=== PATIENT | female | born 1965 | race African-American/Black ===

== ENCOUNTER 2017-03-30 20:02 | Inpatient (IN) | payer MEDICARE, MEDICAID ==
[2017-03-30] MEDS ORDERED: MORPHINE SULFATE 10 MG/ML INJ IV ONE (20:21)
[2017-03-30] MEDS ORDERED: ONDANSETRON HCL INJ/PF 4 MG/2 ML SDV IV ONE ×2 (20:21→23:16)
--- NOTE | 2017-03-30 20:22 | ER Document Report ---
ED Medical Screen (RME) - General Chief Complaint: Abdominal Pain Stated Complaint: ABDOMINAL PAIN Time Seen by Provider: 03/30/17 20:12 Mode of Arrival: Wheelchair Information source: Patient TRAVEL OUTSIDE OF THE [place] IN LAST 30 DAYS: No - HPI Patient complains to provider of: Abdominal pain, nausea and vomiting Onset: Yesterday Notes: 03/30/17 20:22 Patient is a 51-year-old female presenting to the emergency room today complaining of abdominal pain with nausea and vomiting that started yesterday evening, she is a diabetic but has not checked her blood sugar today - Related Data Allergies/Adverse Reactions: No Known Allergies Allergy (Verified 03/30/17 20:09) Past Medical History - Past Medical History Cardiac Medical History: Reports: Hx Hypertension Pulmonary Medical History: Reports: Hx COPD Renal/ Medical History: Denies: Hx Peritoneal Dialysis Musculoskeltal Medical History: Reports Hx Arthritis Past Surgical History: Reports: Hx Hysterectomy, Hx Orthopedic Surgery - knee - Immunizations Hx Diphtheria, Pertussis, Tetanus Vaccination: Yes Physical Exam - Vital signs Vitals: Temp Pulse Resp BP Pulse Ox 98.5 F 97 18 145/92 H 98 03/30/17 20:08 03/30/17 20:08 03/30/17 20:08 03/30/17 20:08 03/30/17 20:08 Course - Vital Signs Vital signs: Temp Pulse Resp BP Pulse Ox 98.5 F 97 18 145/92 H 98 03/30/17 20:08 03/30/17 20:08 03/30/17 20:08 03/30/17 20:08 03/30/17 20:08
[2017-03-30] MEDS: NORMAL SALINE 1000 ML 1,000 ML IV PRN ×2 (20:45→22:52)
[2017-03-30 20:54] LABS: ABSOLUTE BASOPHILS # (AUTO) 0.1 10^3/uL (0.0-0.2); ABSOLUTE LYMPHOCYTES (AUTO) 1.2 10^3/uL (0.5-4.7); ABSOLUTE MONOCYTES (AUTO) 0.6 10^3/uL (0.1-1.4); ABSOLUTE NEUT (AUTO) 10.9 10^3/uL (1.7-8.2); BASOPHILS % (AUTO) 0.5 % (0-2); LYMPHOCYTES % (AUTO) 9.5 % (13-45); MEAN CORPUSCULAR HEMOGLOBIN 29.8 pg (27.0-33.4); MEAN CORPUSCULAR HGB CONC 34.1 g/dL (32.0-36.0); MEAN CORPUSCULAR VOLUME 87 fl (80-97); MONOCYTES % (AUTO) 4.8 % (3-13); RED CELL DISTRIBUTION WIDTH 14.2 % (11.5-14.0); SEGMENTED NEUTROPHILS % (AUTO) 85.2 % (42-78); WHITE BLOOD COUNT 12.8 10^3/uL (4.0-10.5)
[2017-03-30 21:07] LABS: ALANINE AMINOTRANSFERASE 14 U/L (9-52); ALBUMIN 4.8 g/dL (3.5-5.0); ALKALINE PHOSPHATASE 78 U/L (38-126); ANION GAP 14 (5-19); ASPARTATE AMINO TRANSFERASE 18 U/L (14-36); BILIRUBIN,DIRECT 0.5 mg/dL (0.0-0.4); BILIRUBIN,TOTAL 1.2 mg/dL (0.2-1.3); BLOOD UREA NITROGEN 11 mg/dL (7-20); CALCIUM 10.7 mg/dL (8.4-10.2); CARBON DIOXIDE 35 mmol/L (22-30); CHLORIDE 95 mmol/L (98-107); CREATININE RESULT 0.56 mg/dL (0.52-1.25); GLUCOSE 180 mg/dL (75-110); LIPASE 69.6 U/L (23-300); POTASSIUM 3.3 mmol/L (3.6-5.0); TOTAL PROTEIN 8.4 g/dL (6.3-8.2)
[2017-03-30 21:35] LABS: VENOUS BLOOD BASE EXCESS 10.3 mmol/L; VENOUS BLOOD HCO3 35.6 mmol/L (20-32); VENOUS BLOOD PCO2 49.4 mmHg (35-63); VENOUS BLOOD PH 7.48 (7.30-7.42)
[2017-03-30 23:15] LABS: APPEARANCE,URINE SLIGHTLY-CLOUDY; BILIRUBIN,URINE NEGATIVE (NEGATIVE); GLUCOSE, URINE NEGATIVE (NEGATIVE); KETONES,URINE 20 mg/dL (NEGATIVE); LEUKOCYTE ESTERASE,URINE TRACE (NEGATIVE); NITRITE,URINE NEGATIVE (NEGATIVE); PROTEIN,URINE NEGATIVE (NEGATIVE); URINE SPECIFIC GRAVITY 1.017
[2017-03-30] MEDS ORDERED: HYDROMORPHONE HCL INJ/PF 2 MG/ML AMPULE IV ONE (23:16)
--- NOTE | 2017-03-30 23:17 | ER Document Report ---
ED GI/ - General Mode of Arrival: Wheelchair Information source: Patient, Relative TRAVEL OUTSIDE OF THE [place] IN LAST 30 DAYS: No - HPI Patient complains to provider of: Abdominal pain, Vomiting Onset: Yesterday Location: Other - bridget-umbilical Associated symptoms: Other - see notes above <DARON STEEN - Last Filed: 03/30/17 23:45> <RUSTAM SEGAL - Last Filed: 03/31/17 04:17> - General Chief Complaint: Abdominal Pain Stated Complaint: ABDOMINAL PAIN Time Seen by Provider: 03/30/17 20:12 Notes: 51 year old female with history of diabetes and hypertension presents to the ED complaining of sharp stabbing bridget-umbilical abdominal pain that started yesterday evening. Patient's family states that the patient had a decreased appetite yesterday, but managed to eat a few peanuts at 1400 yesterday. Patient began to feel dizzy and developed the abdominal pain. The family then gave her some chicken noodle soup of which she sipped on the chicken broth. Patient explains that the chicken broth did not exacerbate the pain. Patient states that she has not been passing gas. Patient is additionally complaining of nausea and vomiting (no blood). Patient has taken Pepto Bismol, Milk of Magnesium, laxatives, and an enema to no relief. Patient denies history of a appendectomy or cholecystectomy. (DARON STEEN) - Related Data Allergies/Adverse Reactions: No Known Allergies Allergy (Verified 03/30/17 20:09) Past Medical History - General Information source: Patient, Relative - Social History Smoking Status: Never Smoker Chew tobacco use (# tins/day): No Frequency of alcohol use: None Drug Abuse: None Family History: Reviewed & Not Pertinent - Past Medical History Cardiac Medical History: Reports: Hx Hypertension Pulmonary Medical History: Reports: Hx COPD Endocrine Medical History: Reports: Hx Diabetes Mellitus Type 2 - non-insulin dependent Renal/ Medical History: Denies: Hx Peritoneal Dialysis Musculoskeltal Medical History: Reports Hx Arthritis Past Surgical History: Reports: Hx Hysterectomy, Hx Orthopedic Surgery - knee - Immunizations Hx Diphtheria, Pertussis, Tetanus Vaccination: Yes <DARON STEEN - Last Filed: 03/30/17 23:45> Review of Systems - Review of Systems Constitutional: No symptoms reported EENT: No symptoms reported Cardiovascular: See HPI, Dizziness Respiratory: No symptoms reported Gastrointestinal: See HPI, Abdominal pain, Nausea, Vomiting, Poor appetite Genitourinary: No symptoms reported Female Genitourinary: No symptoms reported Musculoskeletal: No symptoms reported Skin: No symptoms reported Hematologic/Lymphatic: No symptoms reported Neurological/Psychological: No symptoms reported <DARON STEEN - Last Filed: 03/30/17 23:45> Physical Exam <DARON STEEN - Last Filed: 03/30/17 23:45> <RUSTAM SEGAL - Last Filed: 03/31/17 04:17> - Vital signs Vitals: Temp Pulse Resp BP Pulse Ox 98.5 F 97 18 145/92 H 98 03/30/17 20:08 03/30/17 20:08 03/30/17 20:08 03/30/17 20:08 03/30/17 20:08 - Notes Notes: GENERAL: Alert, interacts well. No acute distress. HEAD: Normocephalic, atraumatic. EYES: Pupils equal, round, and reactive to light. Extraocular movements intact. ENT: Oral mucosa moist, tongue midline. NECK: Full range of motion. Supple. Trachea midline. LUNGS: Clear to auscultation bilaterally, no wheezes, rales, or rhonchi. No respiratory distress. HEART: Regular rate and rhythm. No murmurs, gallops, or rubs. ABDOMEN: Soft. Non-distended. Bowel sounds present in all 4 quadrants. Tenderness to palpation of the bridget-umbilical region. EXTREMITIES: Moves all 4 extremities spontaneously. No cyanosis. NEUROLOGICAL: Alert and oriented x3. Normal speech. PSYCH: Normal affect, normal mood. SKIN: Warm, dry, normal turgor. No rashes or lesions noted. (DARON STEEN) Course - Laboratory Result Diagrams: 03/30/17 20:35 03/30/17 20:35 <DARON STEEN - Last Filed: 03/30/17 23:45> - Laboratory Result Diagrams: 03/30/17 20:35 03/30/17 20:35 <RUSTAM SEGAL - Last Filed: 03/31/17 04:17> - Re-evaluation Re-evalutation: 03/31/17 02:39 CBC shows slight leukocytosis of 12.8, venous blood gas shows pH of 7.48 which is grossly unremarkable, CMP shows slightly low potassium at 3.3, elevated glucose at 180 otherwise unremarkable, lipase normal at 69.6, urinalysis has trace leukocyte esterase and 4 screws epithelial cells suspect contamination, CT scan of the abdomen pelvis was ordered due to the obstipation, vomiting and tenderness to palpation, shows a partial small bowel obstruction with transition point in the pelvis. NG tube was ordered with lidocaine neb to increase patient comfort. Discussed with the surgeon on-call who agrees to admit the patient to his service on the surgical floor. (RUSTAM SEGAL) - Vital Signs Vital signs: Temp Pulse Resp BP Pulse Ox 98.5 F 97 18 145/92 H 98 03/30/17 20:08 03/30/17 20:08 03/30/17 20:08 03/30/17 20:08 03/30/17 20:08 - Laboratory Laboratory results interpreted by me: 03/30/17 03/30/17 03/30/17 20:27 20:35 20:35 WBC 12.8 H RDW 14.2 H Seg Neutrophils % 85.2 H Lymphocytes % 9.5 L Absolute Neutrophils 10.9 H VBG pH VBG HCO3 Potassium 3.3 L Chloride 95 L Carbon Dioxide 35 H Glucose 180 H POC Glucose 177 H Calcium 10.7 H Direct Bilirubin 0.5 H Total Protein 8.4 H Urine Ketones Urine Urobilinogen Ur Leukocyte Esterase 03/30/17 03/30/17 20:35 22:49 WBC RDW Seg Neutrophils % Lymphocytes % Absolute Neutrophils VBG pH 7.48 H VBG HCO3 35.6 H Potassium Chloride Carbon Dioxide Glucose POC Glucose Calcium Direct Bilirubin Total Protein Urine Ketones 20 H Urine Urobilinogen 2.0 H Ur Leukocyte Esterase TRACE H Discharge <DARON STEEN - Last Filed: 03/30/17 23:45> - Discharge Admitting Provider: Surgicalist - [facility] Admitted: Surgical Floor <RUSTAM SEGAL - Last Filed: 03/31/17 04:17> - Discharge Clinical Impression: Partial small bowel obstruction Condition: Good Disposition: ADMITTED INPATIENT Scribe Attestation: 03/31/17 04:17 I personally performed the services described in the documentation, reviewed and edited the documentation which was dictated to the scribe in my presence, and it accurately records my words and actions. (RUSTAM SEGAL) Scribe Documentation - Scribe Written by Scribe:: Marisol Smith, 03/30/2017 [id number] acting as scribe for :: Patricia <DARON STEEN - Last Filed: 03/30/17 23:45>
[2017-03-31] MEDS ORDERED: HYDROMORPHONE HCL INJ/PF 2 MG/ML AMPULE IV ONE (01:15)
--- NOTE | 2017-03-31 02:16 | RADIOLOGY REPORT (SQ) ---
EXAM DESCRIPTION: CT ABD/PELVIS WITH IV ORAL COMPLETED DATE/TIME: 03/31/2017 1:59 am REASON FOR STUDY: periumblical pain to palpation COMPARISON: None. TECHNIQUE: CT scan of the abdomen and pelvis performed using helical scanning technique with dynamic intravenous contrast injection. With oral contrast. Images reviewed with lung, soft tissue, and bon e windows. Reconstructed coronal and sagittal MPR images reviewed. Delayed images for evaluation of t he urinary system also acquired. All images stored on PACS. All CT scanners at this facility use dose modulation, iterative reconstruction, and/or weight based d osing when appropriate to reduce radiation dose to as low as reasonably achievable (ALARA). [facility]: Dose Right [facility]: CareDose [facility]: Dose Right [facility]: Teradose 4D [facility]: [place] CONTRAST TYPE AND DOSE: contrast/concentration: Isovue 370.00 mg/ml; Total Contrast Delivered: 100.0 ml; Total Saline Delivered: 70.1 ml RENAL FUNCTION: GFR > 60. RADIATION DOSE: Up-to-date CT equipment and radiation dose reduction techniques were employed. CTDIv ol: 17.4 - 20.4 mGy. DLP: 2152 mGy-cm.. LIMITATIONS: None. FINDINGS: LOWER CHEST: No significant findings. No nodules or infiltrates. LIVER: Normal size. No masses. No dilated ducts. SPLEEN: Normal size. No focal lesions. PANCREAS: No masses. No significant calcifications. No adjacent inflammation or peripancreatic fluid collections. Pancreatic duct not dilated. GALLBLADDER: No identified stones by CT criteria. No inflammatory changes to suggest cholecystitis. ADRENAL GLANDS: No significant masses or asymmetry. RIGHT KIDNEY AND URETER: No solid masses. No significant calcifications. No hydronephrosis or hyd roureter. LEFT KIDNEY AND URETER: No solid masses. No significant calcifications. No hydronephrosis or hydr oureter. AORTA AND VESSELS: No aneurysm. No dissection. Renal arteries, SMA, celiac without stenosis. RETROPERITONEUM: No retroperitoneal adenopathy, hemorrhage or masses. BOWEL AND PERITONEAL CAVITY: Dilatation of proximal small bowel loops with a transition zone in the p otilio. Collapse of the colon. There is some mild pericolonic fat stranding of the distal descending colon just adjacent to dilated small bowel loops. APPENDIX: Not visualized. PELVIS: No mass. No free fluid. Normal bladder. ABDOMINAL WALL: No masses. No hernias. BONES: No significant or acute findings. OTHER: No other significant finding. IMPRESSION: Partial small bowel obstruction. Transition zone is in the pelvis without identified et iology. Minimal pericolonic fat stranding distal descending colon adjacent to dilated small bowel loops. No obvious diverticular other etiology for the fat stranding. TECHNICAL DOCUMENTATION: JOB ID: [id number] Quality ID # [id number]: Final reports with documentation of one or more dose reduction techniques (e.g., Au tomated exposure control, adjustment of the mA and/or kV according to patient size, use of iterative reconstruction technique) 2010 [employer]- All Rights Reserved
[2017-03-31] MEDS ORDERED: LIDOCAINE 2% INJ-PF (20 MG/ML) 10 ML AMPUL NEB ONE (02:34)
[2017-03-31] MEDS ORDERED: ONDANSETRON HCL INJ/PF 4 MG/2 ML SDV IV PRN (03:02)
--- NOTE | 2017-03-31 04:37 | RADIOLOGY REPORT (SQ) ---
EXAM DESCRIPTION: NASO/OROGASTRIC TUBE PLACEMENT COMPLETED DATE/TIME: 03/31/2017 4:30 am REASON FOR STUDY: ng tube placement COMPARISON: None. TECHNIQUE: AP view of the chest and abdomen LIMITATIONS: None. FINDINGS: Nasogastric tube tip in the body of the stomach. IMPRESSION: Nasogastric tube tip in the body of the stomach. TECHNICAL DOCUMENTATION: JOB ID: [id number] [employer]- All Rights Reserved
--- NOTE | 2017-03-31 07:03 | HISTORY AND PHYSICAL E ---
History and Physical NAME: GRANT CAGE : 1965 AGE: 51Y ADMITTED: 03/31/2017 ROOM: ED21 HISTORY OF PRESENT ILLNESS: A 51-year-old female patient presented to the emergency room with a history of abdominal pain for 2 days and nausea. She vomited a couple of times yesterday. Came to the emergency at night with abdominal pain and nausea. After arriving in the emergency room, she had a large bowel movement after NG tube insertion. She has history of partial small bowel obstruction a few years ago, after hysterectomy in the past. Symptoms started 2 days ago and as of now, she is feeling better after NG tube. PAST MEDICAL PROBLEMS: 1. History of overweight. 2. Hypertension. 3. History of tonsillectomy several years ago. 4. History of small bowel obstruction that resolved spontaneously. REVIEW OF SYSTEMS: As per examination. PHYSICAL EXAMINATION: GENERAL: She is a pleasant 51-year-old female patient, not in any distress. VITAL SIGNS: Currently afebrile, heart rate 90, blood pressure 140/72. HEAD AND NECK EXAMINATION: No lymphadenopathy, no masses. RESPIRATORY: On examination, both lungs are clear to auscultation. CARDIOVASCULAR: On examination, heart sounds are regular, no murmurs or gallops. ABDOMEN: On examination, soft diffusely. No tenderness on palpation. No palpable hernia. She does have bowel sounds, slightly hyperactive. EXTREMITIES: Warm and well perfused. LABORATORY: White count was 12.8, hemoglobin 14. BUN 11, creatinine 0.56. Serum LFTs were normal. Abdominal CT scan revealed partial bowel obstruction. IMPRESSION: Small bowel obstruction, most likely due to *------*. PLAN: Patient already had large bowel movement and output is minimal at this point. Looks like she will probably progress and resolve spontaneous. In any case, findings are admission for inpatient management with NG tube, bowel rest, IV hydration, DVT prophylaxis. Discussed with the patient the overall plan and management. DICTATING PHYSICIAN: SANTIAGO HOUSE M.D. [id number] PHY#: [id number] ID: [id number] JOB#: [id number] ACCT: [id number] cc: >
[2017-03-31] MEDS: POTASSI CL 20 MEQ/D5-1/2NS 1L 1000 ML IV PRN ×2 (08:13→17:39)
[2017-03-31] MEDS: HYDROMORPHONE HCL INJ/PF 2 MG/ML AMPULE IV PRN ×2 (08:29→23:14)
[2017-03-31] MEDS: ENOXAPARIN SODIUM INJ 40 MG/0.4 ML DISP.SYRIN SUBCUT SCH (11:19)
[2017-03-31] MEDS: LORATADINE 10 MG TABLET PO PRN (21:53)
[2017-04-01] MEDS: POTASSI CL 20 MEQ/D5-1/2NS 1L 1000 ML IV PRN ×3 (02:30→22:37)
[2017-04-01] MEDS: HYDROMORPHONE HCL INJ/PF 2 MG/ML AMPULE IV PRN (02:43)
--- NOTE | 2017-04-01 08:11 | RADIOLOGY REPORT (SQ) ---
EXAM DESCRIPTION: ABDOMEN 2 VIEWS COMPLETED DATE/TIME: 04/01/2017 7:53 am REASON FOR STUDY: INTERVAL CHANGE IN Psbo COMPARISON: CT abdomen pelvis 03/31/2017 NUMBER OF VIEWS: Two views. TECHNIQUE: Supine and upright radiographic images of the abdomen acquired. LIMITATIONS: None. FINDINGS: FREE AIR: None. No abnormal gas collections. LUNG BASES: Minimal left basilar atelectasis BOWEL GAS PATTERN: There is gas throughout the colon, air in few nondistended small bowel loops. Sma ll amount of air in the stomach fundus. A nasogastric tube is present with the tip and side port in the stomach. CALCIFICATIONS: No suspicious calcifications. SOFT TISSUES: No gross mass or suggestion of organomegaly. HARDWARE: None in the abdomen. BONES: No acute fracture. No worrisome bone lesions. OTHER: No other significant finding. IMPRESSION: Air bubbles throughout a nondistended gastrointestinal tract. Nasogastric tube tip and side port in the stomach TECHNICAL DOCUMENTATION: JOB ID: [id number] [employer]- All Rights Reserved
--- NOTE | 2017-04-01 10:57 | PROGRESS NOTE E ---
Progress Note NAME: GRANT CAGE : 1965 AGE: 51Y DATE: 04/01/2017 ROOM: 208 SUBJECTIVE: Patient denies any abdominal pains at this time. She has also passed flatus. Her NG tube has not drained a lot. IMPRESSION: 1. Resolution of PARTIAL SMALL-BOWEL OBSTRUCTION, LIKELY DUE TO ADHESIONS. 2. Discontinue NG tube. 3. Start clear liquids today and progress as tolerated. DICTATING PHYSICIAN: VEE BURKS M.D. [id number] PHY#: [id number] ID: [id number] JOB#: [id number] ACCT: [id number] cc: >
[2017-04-01] MEDS: FLUOXETINE HCL 20 MG CAPSULE PO SCH (11:12)
[2017-04-01] MEDS: ENOXAPARIN SODIUM INJ 40 MG/0.4 ML DISP.SYRIN SUBCUT SCH (11:12)
[2017-04-01] MEDS: AMLODIPINE BESYLATE 10 MG TABLET PO SCH (11:13)
[2017-04-01] MEDS: HYDROCHLOROTHIAZIDE 25 MG TABLET PO SCH (13:45)
[2017-04-01] MEDS ORDERED: ACETAMINOPHEN 325 MG TABLET ONE (15:59)
[2017-04-01] MEDS: METFORMIN HCL 500 MG TABLET PO SCH (16:00)
[2017-04-01 17:05] LABS: ABSOLUTE BASOPHILS # (AUTO) 0.1 10^3/uL (0.0-0.2); ABSOLUTE EOSINOPHILS # (AUTO) 0.1 10^3/uL (0.0-0.6); ABSOLUTE MONOCYTES (AUTO) 1.1 10^3/uL (0.1-1.4); ABSOLUTE NEUT (AUTO) 6.5 10^3/uL (1.7-8.2); BASOPHILS % (AUTO) 0.8 % (0-2); EOSINOPHILS % (AUTO) 1.1 % (0-6); HEMATOCRIT 37.8 % (36.0-47.0); HGB HCT DIFFERENCE 1.2; LYMPHOCYTES % (AUTO) 27.8 % (13-45); MEAN CORPUSCULAR HEMOGLOBIN 30.4 pg (27.0-33.4); MEAN CORPUSCULAR HGB CONC 34.5 g/dL (32.0-36.0); MEAN CORPUSCULAR VOLUME 88 fl (80-97); MONOCYTES % (AUTO) 10.1 % (3-13); RED BLOOD COUNT 4.28 10^6/uL (3.72-5.28); SEGMENTED NEUTROPHILS % (AUTO) 60.2 % (42-78); WHITE BLOOD COUNT 10.8 10^3/uL (4.0-10.5)
[2017-04-01] MEDS ORDERED: (PENDING PHARMACY ID) (Metformin Hcl [Metformin Hcl Er] 500 MG) PO SCH (18:00)
[2017-04-01] MEDS: LORATADINE 10 MG TABLET PO PRN (22:07)
[2017-04-01] MEDS: ACETAMINOPHEN 325 MG TABLET PO PRN (22:44)
[2017-04-02] MEDS: POTASSI CL 20 MEQ/D5-1/2NS 1L 1000 ML IV PRN ×3 (06:44→22:49)
[2017-04-02] MEDS: ACETAMINOPHEN 325 MG TABLET PO PRN ×2 (06:48→21:18)
[2017-04-02] MEDS: METFORMIN HCL 500 MG TABLET PO SCH ×2 (07:45→16:33)
[2017-04-02] MEDS: AMLODIPINE BESYLATE 10 MG TABLET PO SCH (10:23)
[2017-04-02] MEDS: FLUOXETINE HCL 20 MG CAPSULE PO SCH (10:31)
[2017-04-02] MEDS: HYDROCHLOROTHIAZIDE 25 MG TABLET PO SCH (10:32)
[2017-04-02] MEDS: ENOXAPARIN SODIUM INJ 40 MG/0.4 ML DISP.SYRIN SUBCUT SCH (10:37)
[2017-04-02 11:23] LABS: ALANINE AMINOTRANSFERASE 23 U/L (9-52); ALBUMIN 3.7 g/dL (3.5-5.0); ALKALINE PHOSPHATASE 55 U/L (38-126); ANION GAP 8 (5-19); ASPARTATE AMINO TRANSFERASE 13 U/L (14-36); BILIRUBIN,DIRECT 0.3 mg/dL (0.0-0.4); BILIRUBIN,TOTAL 0.6 mg/dL (0.2-1.3); BLOOD UREA NITROGEN 4 mg/dL (7-20); CALCIUM 9.2 mg/dL (8.4-10.2); CARBON DIOXIDE 35 mmol/L (22-30); CHLORIDE 100 mmol/L (98-107); CREATININE RESULT 0.58 mg/dL (0.52-1.25); GLUCOSE 138 mg/dL (75-110); POTASSIUM 3.3 mmol/L (3.6-5.0); SODIUM 142.9 mmol/L (137-145); TOTAL PROTEIN 6.6 g/dL (6.3-8.2)
[2017-04-02] MEDS ORDERED: INFLUENZA ADLT QUAD (36MOS+) 2017-18 VAC 0.5 ML SYR IM PRN (12:45)
--- NOTE | 2017-04-02 18:28 | PROGRESS NOTE E ---
Progress Note NAME: GRANT CAGE : 1965 AGE: 51Y DATE: 04/02/2017 ROOM: 208 SUBJECTIVE: Her NG tube has been discontinued last night. She denies any nausea or vomiting and she is passing flatus. She complains of mild abdominal pains but quite tolerable. She is tolerating clear liquids. PLAN: To increase her diet and hopefully she will be able to tolerate soft diet with less pains in the morning and then she can be discharged. DICTATING PHYSICIAN: VEE BURKS M.D. [id number] PHY#: [id number] ID: [id number] JOB#: [id number] ACCT: [id number] cc: >
[2017-04-02] MEDS: LORATADINE 10 MG TABLET PO PRN (22:19)
[2017-04-03] MEDS: METFORMIN HCL 500 MG TABLET PO SCH (08:14)
[2017-04-03 08:37] VITALS: BP 123/76
--- NOTE | 2017-04-16 09:38 | DISCHARGE SUMMARY E ---
Discharge Summary NAME: GRANT CAGE : 1965 AGE: 51Y ADMITTED: 03/31/2017 DISCHARGED: 04/03/2017 FINAL DIAGNOSIS: Small bowel obstruction due to adhesions post hysterectomy. HOSPITAL COURSE: This is a 51-year-old female who complained of abdominal pains for the past 2 days with nausea. She vomited a couple of times prior to admission. In the emergency room, she had a large bowel movement out the NG tube insertion. She did have a history of partial small bowel obstruction a few years ago after a hysterectomy in the past. Patient's white count was 12.8 on admission. She had a CAT scan of the abdomen in the ED which showed partial small bowel obstruction. Patient's NG tube was discontinued on day 2 of hospitalization on 04/02/2017. Patient was able to tolerate a soft diet on 04/03/2017 with resolution of all her symptoms. She had been passing flatus. She was then discharged improved on 04/03/2017 with the final diagnosis of partial small bowel obstruction due to adhesions that resolved. Patient is to be followed up in the [facility] on a p.r.n. basis. In the meantime, she was advised to continue with a soft diet for the next 2 to 3 days then increase to regular as tolerated. DICTATING PHYSICIAN: VEE BURKS M.D. [id number] PHY#: [id number] ID: [id number] JOB#: [id number] ACCT: [id number] cc:Hi PEARSON M.D. >
== END 2017-04-03 09:00 | disposition home or self-care (01) | DRG 390 ==
LOC: ER 20:02 → 2N 03-31 02:46 → EH 03-31 03:11 → UNDOADMIN 03-31 03:11 → 2N 03-31 06:57 → EH 03-31 06:57
PROVIDERS: ADMIT Colon & Rectal Surgery; ATTEND Colon & Rectal Surgery
PROC: 0D9670Z Drainage of Stomach with Drainage Device, Via Natural or Artificial Opening (ICD-10-PCS; principal; 2017-03-31)
PROC: 3E0234Z Introduction of Serum, Toxoid and Vaccine into Muscle, Percutaneous Approach (ICD-10-PCS; 2017-04-03)
DX: K56.51 Intestinal adhesions [bands], with partial obstruction (principal); I10 Essential (primary) hypertension; E66.3 Overweight; Z68.32 Body mass index [BMI] 32.0-32.9, adult; J44.9 Chronic obstructive pulmonary disease, unspecified; E11.9 Type 2 diabetes mellitus without complications; M19.90 Unspecified osteoarthritis, unspecified site; Z90.710 Acquired absence of both cervix and uterus; Z23 Encounter for immunization
CPT/HCPCS: 36415; 43752; 74020; 74177; 80053; 81001; 82803; 82962; 83690; 85025; 90686; 94640; 94799; 96361; 96374; 96375; 96376; 99285; J1170; J1650; J2270; J2405; J3480; J3490; J7030

== ENCOUNTER → 2017-05-13 | Outpatient (CLI) | payer MEDICARE, MEDICAID ==
[2017-05-13 11:19] LABS: ABSOLUTE MONOCYTES (AUTO) 0.5 10^3/uL (0.1-1.4); ABSOLUTE NEUT (AUTO) 2.9 10^3/uL (1.7-8.2); BASOPHILS % (AUTO) 0.6 % (0-2); EOSINOPHILS % (AUTO) 0.8 % (0-6); HEMATOCRIT 38.3 % (36.0-47.0); HEMOGLOBIN 13.3 g/dL (12.0-15.5); HGB HCT DIFFERENCE 1.6; LYMPHOCYTES % (AUTO) 36.8 % (13-45); MEAN CORPUSCULAR HEMOGLOBIN 30.6 pg (27.0-33.4); MEAN CORPUSCULAR HGB CONC 34.7 g/dL (32.0-36.0); MEAN CORPUSCULAR VOLUME 88 fl (80-97); MONOCYTES % (AUTO) 8.6 % (3-13); RED BLOOD COUNT 4.35 10^6/uL (3.72-5.28); SEGMENTED NEUTROPHILS % (AUTO) 53.2 % (42-78); WHITE BLOOD COUNT 5.5 10^3/uL (4.0-10.5)
[2017-05-13 11:44] LABS: ALANINE AMINOTRANSFERASE 28 U/L (9-52); ALBUMIN 4.2 g/dL (3.5-5.0); ALKALINE PHOSPHATASE 61 U/L (38-126); ANION GAP 11 (5-19); ASPARTATE AMINO TRANSFERASE 18 U/L (14-36); BILIRUBIN,DIRECT 0.3 mg/dL (0.0-0.4); BILIRUBIN,TOTAL 0.8 mg/dL (0.2-1.3); BLOOD UREA NITROGEN 12 mg/dL (7-20); CALCIUM 9.6 mg/dL (8.4-10.2); CARBON DIOXIDE 32 mmol/L (22-30); CHLORIDE 101 mmol/L (98-107); CHOLESTEROL 193.03 mg/dL (0-200); CREATININE RESULT 0.62 mg/dL (0.52-1.25); Direct HDL 55 mg/dL (>40); GLUCOSE 106 mg/dL (75-110); POTASSIUM 3.3 mmol/L (3.6-5.0); SODIUM 144.4 mmol/L (137-145); TOTAL PROTEIN 7.1 g/dL (6.3-8.2); TRIGLYCERIDES 96 mg/dL (<150)
[2017-05-13 11:55] LABS: DIRECT LDL 113 mg/dL (<100)
== END ==
LOC: OD 09:28
PROVIDERS: ATTEND Internal Medicine
DX: E11.9 Type 2 diabetes mellitus without complications (principal); I10 Essential (primary) hypertension; E78.5 Hyperlipidemia, unspecified
CPT/HCPCS: 36415; 80053; 80061; 83036; 85025

== ENCOUNTER → 2017-08-29 | Outpatient (CLI) | payer MEDICARE, MEDICAID ==
[2017-08-29 09:12] LABS: ABSOLUTE EOSINOPHILS # (AUTO) 0.1 10^3/uL (0.0-0.6); ABSOLUTE LYMPHOCYTES (AUTO) 2.3 10^3/uL (0.5-4.7); ABSOLUTE MONOCYTES (AUTO) 0.5 10^3/uL (0.1-1.4); ABSOLUTE NEUT (AUTO) 2.9 10^3/uL (1.7-8.2); BASOPHILS % (AUTO) 0.8 % (0-2); EOSINOPHILS % (AUTO) 1.1 % (0-6); HEMATOCRIT 39.7 % (36.0-47.0); HEMOGLOBIN 13.6 g/dL (12.0-15.5); LYMPHOCYTES % (AUTO) 39.7 % (13-45); MEAN CORPUSCULAR HGB CONC 34.2 g/dL (32.0-36.0); MEAN CORPUSCULAR VOLUME 88 fl (80-97); MONOCYTES % (AUTO) 8.6 % (3-13); PLATELET COUNT 306 10^3/uL (150-450); RED BLOOD COUNT 4.53 10^6/uL (3.72-5.28); RED CELL DISTRIBUTION WIDTH 13.7 % (11.5-14.0); SEGMENTED NEUTROPHILS % (AUTO) 49.8 % (42-78); TOTAL CELLS COUNTED % (AUTO) 100 %; WHITE BLOOD COUNT 5.8 10^3/uL (4.0-10.5)
[2017-08-29 09:35] LABS: ALANINE AMINOTRANSFERASE 20 U/L (9-52); ALBUMIN 4.1 g/dL (3.5-5.0); ALKALINE PHOSPHATASE 70 U/L (38-126); ANION GAP 10 (5-19); ASPARTATE AMINO TRANSFERASE 17 U/L (14-36); BILIRUBIN,DIRECT 0.3 mg/dL (0.0-0.4); BILIRUBIN,TOTAL 0.7 mg/dL (0.2-1.3); BLOOD UREA NITROGEN 11 mg/dL (7-20); CALCIUM 9.6 mg/dL (8.4-10.2); CARBON DIOXIDE 33 mmol/L (22-30); CHLORIDE 100 mmol/L (98-107); CHOLESTEROL 113.72 mg/dL (0-200); GLUCOSE 121 mg/dL (75-110); POTASSIUM 3.3 mmol/L (3.6-5.0); SODIUM 143.2 mmol/L (137-145); TOTAL PROTEIN 7.3 g/dL (6.3-8.2); TRIGLYCERIDES 51 mg/dL (<150)
[2017-08-29 09:46] LABS: DIRECT LDL 55 mg/dL (<100)
[2017-08-30 15:37] LABS: CREATININE URINE 323.6 mg/dL (Not Estab.); MICROALBUMIN URINE 14.6 ug/mL (Not Estab.)
== END ==
LOC: OD 08:21
PROVIDERS: ATTEND Internal Medicine
DX: E11.9 Type 2 diabetes mellitus without complications (principal); I10 Essential (primary) hypertension; E78.5 Hyperlipidemia, unspecified; R53.83 Other fatigue
CPT/HCPCS: 36415; 80053; 80061; 82043; 82570; 83036; 84443; 85025

== ENCOUNTER → 2018-04-24 | Outpatient (CLI) | payer MEDICARE, MEDICAID ==
--- NOTE | 2018-04-24 14:41 | WOMENS IMAGING REPORT ---
EXAM DESCRIPTION: 3D SCREENING MAMMO BILAT COMPLETED DATE/TIME: 04/24/2018 2:17 pm REASON FOR STUDY: BILATERAL SCREENING MAMMO 3D/Z12.31 Z12.31 ENCNTR SCREEN MAMMOGRAM FOR MALIGNANT NEOPLASM OF ZEUS COMPARISON: 2015, 2016 TECHNIQUE: Standard craniocaudal and mediolateral oblique views of each breast recorded using digita l acquisition and breast tomosynthesis. LIMITATIONS: None. FINDINGS: No masses, calcifications or architectural distortion. No areas of suspicion. Read with the assistance of CAD. .[facility] - R2 C[employer] Version 1.3 .[facility] - R2 Cenova Version 1.3 .[facility] - R2 Cenova Version 2.4 .[facility] - R2 Cenova Version 2.4 .[facility] - R2 [employer] Version 9.2 IMPRESSION: NORMAL MAMMOGRAM. BIRADS 1. BREAST DENSITY: c. The breasts are heterogeneously dense, which may obscure small masses. BIRAD: 1 NEGATIVE RECOMMENDATION: ROUTINE SCREENING Please continue yearly bilateral screening mammography/tomosynthesis April 2019 COMMENT: The patient has been notified of the results by letter per [place] requirements. Additional no tification policies are in place for contacting patient with suspicious or incomplete findings. Quality ID #225: The [employer] recommends an annual screening mammogram for women aged 40 years or over. This facility utilizes a reminder system to ensure that all patients receive reminder letters, and/or direct phone calls for appointments. This includes reminders for routine scr eening mammograms, diagnostic mammograms, or other Breast Imaging Interventions when appropriate. Th is patient will be placed in the appropriate reminder system. The [employer] (ACR) has developed recommendations for screening MRI of the breast s in certain patient populations, to be used in conjunction with mammography. Breast MRI surveillanc e may be appropriate for women with more than 20% lifetime risk of developing breast cancer as deter mined by genetic testing, significant family history of the disease, or history of mantle radiation f or Hodgkins Disease. ACR Practice Guidelines 2008. DBT Technology DBT is a type of tomographic mammography. With conventional mammography, overlapping breast tissue ma y make lesions difficult to detect, even with good compression. DBT uses an x-ray tube that rotates a round the breast, taking images at different angles. These images are then combined to create thin sl ices of the breast that the radiologist can view as a 3D reconstruction. The [employer] unit can perform full-field digital mammograms (2D imaging); or DBT (3D imaging); or both, in a combination mode that quickly performs both the mammogram and the tomosynthesis scan while the breast is still compressed. PQRS 6045F: Fluoroscopic imaging is not utilized for breast tomosynthesis. TECHNICAL DOCUMENTATION: FINDING NUMBER: (1) ASSESSMENT: (1) JOB ID: [id number] [employer]- All Rights Reserved Reading location - IP/workstation name: [email or web address]
== END ==
LOC: WI 13:51
PROVIDERS: ATTEND Specialist
DX: Z12.31 Encounter for screening mammogram for malignant neoplasm of breast (principal)
CPT/HCPCS: 77063; 77067

== ENCOUNTER → 2018-04-29 | Outpatient (CLI) | payer MEDICARE, MEDICAID ==
[2018-04-29 09:05] LABS: ABSOLUTE EOSINOPHILS # (AUTO) 0.1 10^3/uL (0.0-0.6); ABSOLUTE MONOCYTES (AUTO) 0.5 10^3/uL (0.1-1.4); ABSOLUTE NEUT (AUTO) 3.1 10^3/uL (1.7-8.2); BASOPHILS % (AUTO) 0.7 % (0-2); HEMATOCRIT 40.3 % (36.0-47.0); HEMOGLOBIN 13.9 g/dL (12.0-15.5); LYMPHOCYTES % (AUTO) 35.8 % (13-45); MEAN CORPUSCULAR HGB CONC 34.5 g/dL (32.0-36.0); MEAN CORPUSCULAR VOLUME 87 fl (80-97); MONOCYTES % (AUTO) 8.5 % (3-13); PLATELET COUNT 294 10^3/uL (150-450); RED BLOOD COUNT 4.65 10^6/uL (3.72-5.28); RED CELL DISTRIBUTION WIDTH 13.8 % (11.5-14.0); TOTAL CELLS COUNTED % (AUTO) 100 %; WHITE BLOOD COUNT 5.7 10^3/uL (4.0-10.5)
[2018-04-29 09:25] LABS: ALANINE AMINOTRANSFERASE 10 U/L (9-52); ALKALINE PHOSPHATASE 72 U/L (38-126); ANION GAP 10 (5-19); ASPARTATE AMINO TRANSFERASE 15 U/L (14-36); BILIRUBIN,DIRECT 0.3 mg/dL (0.0-0.4); BLOOD UREA NITROGEN 10 mg/dL (7-20); CALCIUM 9.6 mg/dL (8.4-10.2); CARBON DIOXIDE 35 mmol/L (22-30); CHLORIDE 98 mmol/L (98-107); CHOLESTEROL 118.95 mg/dL (0-200); GLUCOSE 152 mg/dL (75-110); POTASSIUM 3.1 mmol/L (3.6-5.0); SODIUM 143.2 mmol/L (137-145); TOTAL PROTEIN 7.2 g/dL (6.3-8.2); TRIGLYCERIDES 69 mg/dL (<150)
[2018-04-29 09:36] LABS: DIRECT LDL 67 mg/dL (<100)
== END ==
LOC: OD 08:24
PROVIDERS: ATTEND Internal Medicine
DX: E11.9 Type 2 diabetes mellitus without complications (principal); I10 Essential (primary) hypertension; E78.5 Hyperlipidemia, unspecified
CPT/HCPCS: 36415; 80053; 80061; 83036; 85025

== ENCOUNTER → 2018-10-22 | Outpatient (CLI) | payer MEDICARE, MEDICAID ==
[2018-10-22 08:11] LABS: ABSOLUTE EOSINOPHILS # (AUTO) 0.1 10^3/uL (0.0-0.6); ABSOLUTE MONOCYTES (AUTO) 0.4 10^3/uL (0.1-1.4); ABSOLUTE NEUT (AUTO) 2.7 10^3/uL (1.7-8.2); BASOPHILS % (AUTO) 0.8 % (0-2); EOSINOPHILS % (AUTO) 1.6 % (0-6); HEMATOCRIT 37.6 % (36.0-47.0); HEMOGLOBIN 12.9 g/dL (12.0-15.5); LYMPHOCYTES % (AUTO) 38.1 % (13-45); MEAN CORPUSCULAR HEMOGLOBIN 30.8 pg (27.0-33.4); MEAN CORPUSCULAR HGB CONC 34.2 g/dL (32.0-36.0); MEAN CORPUSCULAR VOLUME 90 fl (80-97); MONOCYTES % (AUTO) 7.6 % (3-13); PLATELET COUNT 313 10^3/uL (150-450); RED BLOOD COUNT 4.18 10^6/uL (3.72-5.28); RED CELL DISTRIBUTION WIDTH 13.8 % (11.5-14.0); SEGMENTED NEUTROPHILS % (AUTO) 51.9 % (42-78); TOTAL CELLS COUNTED % (AUTO) 100 %; WHITE BLOOD COUNT 5.3 10^3/uL (4.0-10.5)
[2018-10-22 09:48] LABS: ALANINE AMINOTRANSFERASE 20 U/L (9-52); ALBUMIN 3.9 g/dL (3.5-5.0); ALKALINE PHOSPHATASE 56 U/L (38-126); ANION GAP 9 (5-19); ASPARTATE AMINO TRANSFERASE 16 U/L (14-36); BILIRUBIN,DIRECT 0.3 mg/dL (0.0-0.4); BILIRUBIN,TOTAL 0.7 mg/dL (0.2-1.3); BLOOD UREA NITROGEN 12 mg/dL (7-20); CALCIUM 9.7 mg/dL (8.4-10.2); CARBON DIOXIDE 31 mmol/L (22-30); CHLORIDE 102 mmol/L (98-107); CHOLESTEROL 110.03 mg/dL (0-200); GLUCOSE 119 mg/dL (75-110); SODIUM 142.3 mmol/L (137-145); TOTAL PROTEIN 6.8 g/dL (6.3-8.2); TRIGLYCERIDES 47 mg/dL (<150)
[2018-10-22 09:58] LABS: DIRECT LDL 55 mg/dL (<100)
[2018-10-23 12:37] LABS: CREATININE URINE 354.9 mg/dL (Not Estab.); MICROALBUMIN URINE 21.3 ug/mL (Not Estab.)
== END ==
LOC: OD 07:25
PROVIDERS: ATTEND Internal Medicine
DX: E11.8 Type 2 diabetes mellitus with unspecified complications (principal); I10 Essential (primary) hypertension; E78.5 Hyperlipidemia, unspecified; R53.83 Other fatigue
CPT/HCPCS: 36415; 80053; 80061; 82043; 82570; 83036; 84443; 85025

== ENCOUNTER → 2019-04-21 | Outpatient (CLI) | payer MEDICARE, MEDICAID ==
--- NOTE | 2019-04-22 09:09 | RADIOLOGY REPORT (SQ) ---
EXAM DESCRIPTION: MRI LUMBAR SPINE WITHOUT COMPLETED DATE/TIME: 04/21/2019 5:53 pm REASON FOR STUDY: LOW BACK PAIN M54.5 LOW BACK PAIN COMPARISON: None. TECHNIQUE: Sagittal and Axial imaging includes T1, T2, STIR and gradient echo sequences. Coronal T2/ HASTE imaging. LIMITATIONS: None. FINDINGS: VISUALIZED UPPER ABDOMEN: Limited evaluation. No acute or suspicious findings suggested. SEGMENTATION: No transitional anatomy. The lowest well-developed disc space is labeled L5-S1. ALIGNMENT: Mild convex left scoliosis. Slight anterolisthesis of L4 relative to L5. VERTEBRAE: Intact. BONE MARROW: Normal. No marrow replacement or reactive changes. DISC SIGNAL: Desiccation multiple levels. POSTERIOR ELEMENTS: Generally intact. No pars defect evident. HARDWARE: None in the spine. CORD AND CONUS: Normal in size and signal intensity. Conus at the appropriate level. SOFT TISSUES: No aortic aneurysm seen. No bulky retroperitoneal adenopathy or mass. No paraspinal mas s or fluid. L1-L2: No significant spinal stenosis or exit foraminal stenosis. L2-L3: Disc bulge and facet arthropathy. Minimal narrowing of the spinal canal. L3-L4: Disc bulge and facet arthropathy. Minimal narrowing of the spinal canal. L4-L5: Disc bulge and facet arthropathy. Minimal narrowing of the spinal canal. L5-S1: Disc bulge and facet arthropathy. No significant stenosis. LOWER THORACIC: Incompletely imaged. No stenosis seen. SACRUM: Series 6, image 33 and image 37, linear signal alteration in the right sacrum. Uncertain if insufficiency fracture or anatomic variant. OTHER: No other significant findings. IMPRESSION: 1. Malalignment and facet arthropathy. Minimal narrowing of the spinal canal. 2. Possible insufficiency fracture in the sacrum. Consider dedicated MRI of the sacrum if clinically indicated. TECHNICAL DOCUMENTATION: JOB ID: [id number] [employer]- All Rights Reserved Reading location - IP/workstation name: [email or web address]
== END ==
LOC: RAD 15:42
PROVIDERS: ATTEND Physician Assistant
DX: M54.5 Low back pain (principal)
CPT/HCPCS: 72148

== ENCOUNTER → 2019-04-29 | Outpatient (CLI) | payer MEDICARE, MEDICAID ==
--- NOTE | 2019-04-29 10:17 | RADIOLOGY REPORT (SQ) ---
EXAM DESCRIPTION: MRI PELVIS WITHOUT COMPLETED DATE/TIME: 04/29/2019 9:54 am REASON FOR STUDY: M53.3 SACROCOCCYGEAL DISORDERS, NOT ELSEWHERE CLASSIFIED M53.3 SACROCOCCYGEAL DIS ORDERS, NOT ELSEWHERE CLASSIFIED COMPARISON: MRI lumbar spine 04/21/2019 CT abdomen pelvis 03/31/2017 TECHNIQUE: Multiplanar multisequence imaging performed without contrast including axial and coronal T1 and STIR images, sagittal T1 images through the bony pelvis with particular attention to the sacru m and coccyx. CONTRAST TYPE AND DOSE: No contrast RENAL FUNCTION: Not required LIMITATIONS: None. FINDINGS: BLADDER AND URETHRA: Incompletely included in the field of view. Posterior portion of the bladder in the field of view is unremarkable. PELVIC SOFT TISSUES: Patient has post total hysterectomy. Along the superior margin of the vaginal c uff, a 1 cm bandlike scar is present between the vaginal cuff and sigmoid colon best shown on axial i mage 22 and coronal image 7. This finding is present on CT exam 03/31/2017, unchanged. No pelvic adenopathy in the field of view. No pelvic free fluid. UTERUS: Post hysterectomy RIGHT OVARY: Surgically absent LEFT OVARY: Surgically absent FREE FLUID: None. PELVIC SKELETAL STRUCTURES: Normal sacrum, SI joints, sacrococcygeal joint, and coccyx. No soft tis frida inflammation surrounding the tail bone. No marrow signal abnormality worrisome for occult fractu re. EXTRA PELVIS SOFT TISSUES: Unremarkable. OTHER: No other significant finding. IMPRESSION: No MR findings to explain history of sacrococcygeal pain. Post total hysterectomy with band of scar tissue between the sigmoid colon and vaginal cuff. This is stable compared to CT exam from 03/31/2017. TECHNICAL DOCUMENTATION: JOB ID: [id number] [employer]- All Rights Reserved Reading location - IP/workstation name: [employer]-[facility]-RR
== END ==
LOC: RAD 09:16
PROVIDERS: ATTEND Physician Assistant
DX: M53.3 Sacrococcygeal disorders, not elsewhere classified (principal)
CPT/HCPCS: 72195

== ENCOUNTER → 2019-05-03 | Outpatient (CLI) | payer MEDICARE, MEDICAID ==
--- NOTE | 2019-05-03 17:10 | WOMENS IMAGING REPORT ---
EXAM DESCRIPTION: U/S THYROID/ST TIS HEAD NECK COMPLETED DATE/TIME: 05/03/2019 9:53 am REASON FOR STUDY: E04.9 NONTOXIC GOITER, UNSPECIFIED E04.9 NONTOXIC GOITER, UNSPECIFIED COMPARISON: 11/16/2013 TECHNIQUE: Dynamic and static gonzalez-scale images acquired of the thyroid gland. Selected additional c olor/power Doppler images recorded. All images stored to PACS. LIMITATIONS: None. FINDINGS: RIGHT LOBE: Right lobe thyroid 4.1 x 1.7 x 1.5 cm in size Homogeneous echotexture. No cy stic or solid masses. LEFT LOBE: Left lobe thyroid 3.3 x 1.3 x 1.3 cm in size. Homogeneous echotexture. No cystic or jeffery d masses. ISTHMUS: Normal size. Homogeneous echotexture. No cystic or solid masses. OTHER: No other significant finding. IMPRESSION: NORMAL THYROID ULTRASOUND. TECHNICAL DOCUMENTATION: JOB ID: [id number] [employer]- All Rights Reserved Reading location - IP/workstation name: [email or web address]
== END ==
LOC: WI 09:20
PROVIDERS: ATTEND Internal Medicine
DX: E04.9 Nontoxic goiter, unspecified (principal)
CPT/HCPCS: 76536

== ENCOUNTER → 2019-05-04 | Outpatient (CLI) | payer MEDICARE, MEDICAID ==
--- NOTE | 2019-05-04 11:59 | WOMENS IMAGING REPORT ---
EXAM DESCRIPTION: 3D SCREENING MAMMO BILAT COMPLETED DATE/TIME: 05/04/2019 10:09 am REASON FOR STUDY: Z12.31 ENCOUNTER FOR SCREENING MAMMOGRAM FOR MALIGNANT NEOPLASM OF BREAST Z12.31 ENCNTR SCREEN MAMMOGRAM FOR MALIGNANT NEOPLASM OF ZEUS COMPARISON: Multiple since 2016 EXAM PARAMETERS: Views: Standard craniocaudal and mediolateral oblique views of each breast recorded using digital acquisition and breast tomosynthesis. Read with the assistance of CAD. .[facility] - [employer] Video Technician Version 9.2 LIMITATIONS: None. FINDINGS: No suspicious masses, suspicious calcifications or architectural distortion. No areas of c oncern. IMPRESSION: NEGATIVE MAMMOGRAM. BIRADS 1. BREAST DENSITY: b. There are scattered areas of fibroglandular density. BIRAD: ASSESSMENT: 1 NEGATIVE RECOMMENDATION: ROUTINE SCREENING Please continue yearly bilateral screening mammography/tomosynthesis in April 2020 COMMENT: The patient has been notified of the results by letter per MQSA requirements. Additional no tification policies are in place for contacting patient with suspicious or incomplete findings. Quality ID #[id number]: The [employer] recommends an annual screening mammogram for women aged 40 years or over. This facility utilizes a reminder system to ensure that all patients receive reminder letters, and/or direct phone calls for appointments. This includes reminders for routine scr eening mammograms, diagnostic mammograms, or other Breast Imaging Interventions when appropriate. Th is patient will be placed in the appropriate reminder system. TECHNICAL DOCUMENTATION: FINDING NUMBER: (1) ASSESSMENT: (1) JOB ID: [id number] [employer]- All Rights Reserved Reading location - IP/workstation name: [email or web address]
== END ==
LOC: WI 09:32
PROVIDERS: ATTEND Specialist
DX: Z12.31 Encounter for screening mammogram for malignant neoplasm of breast (principal)
CPT/HCPCS: 77063; 77067

== ENCOUNTER → 2019-07-23 | Outpatient (CLI) | payer MEDICARE, MEDICAID ==
[2019-07-23 09:30] LABS: ABSOLUTE BASOPHILS # (AUTO) 0.1 10^3/uL (0.0-0.2); ABSOLUTE EOSINOPHILS # (AUTO) 0.1 10^3/uL (0.0-0.6); ABSOLUTE MONOCYTES (AUTO) 0.4 10^3/uL (0.1-1.4); ABSOLUTE NEUT (AUTO) 3.1 10^3/uL (1.7-8.2); EOSINOPHILS % (AUTO) 0.9 % (0-6); HEMATOCRIT 37.7 % (36.0-47.0); HEMOGLOBIN 13.1 g/dL (12.0-15.5); LYMPHOCYTES % (AUTO) 35.5 % (13-45); MEAN CORPUSCULAR HEMOGLOBIN 30.6 pg (27.0-33.4); MEAN CORPUSCULAR HGB CONC 34.8 g/dL (32.0-36.0); MEAN CORPUSCULAR VOLUME 88 fl (80-97); MONOCYTES % (AUTO) 7.8 % (3-13); PLATELET COUNT 311 10^3/uL (150-450); RED BLOOD COUNT 4.28 10^6/uL (3.72-5.28); RED CELL DISTRIBUTION WIDTH 13.7 % (11.5-14.0); SEGMENTED NEUTROPHILS % (AUTO) 54.8 % (42-78); TOTAL CELLS COUNTED % (AUTO) 100 %; WHITE BLOOD COUNT 5.6 10^3/uL (4.0-10.5)
[2019-07-23 09:59] LABS: ALBUMIN 4.2 g/dL (3.5-5.0); ALKALINE PHOSPHATASE 71 U/L (38-126); ANION GAP 9 (5-19); ASPARTATE AMINO TRANSFERASE 17 U/L (14-36); BILIRUBIN,DIRECT 0.3 mg/dL (0.0-0.4); BILIRUBIN,TOTAL 0.7 mg/dL (0.2-1.3); BLOOD UREA NITROGEN 13 mg/dL (7-20); CALCIUM 9.7 mg/dL (8.4-10.2); CARBON DIOXIDE 34 mmol/L (22-30); CHLORIDE 98 mmol/L (98-107); GLUCOSE 123 mg/dL (75-110); POTASSIUM 3.6 mmol/L (3.6-5.0); TOTAL PROTEIN 7.5 g/dL (6.3-8.2); TRIGLYCERIDES 58 mg/dL (<150)
[2019-07-23 10:10] LABS: DIRECT LDL 58 mg/dL (<100)
== END ==
LOC: OD 08:55
PROVIDERS: ATTEND Internal Medicine
DX: E11.21 Type 2 diabetes mellitus with diabetic nephropathy (principal); I10 Essential (primary) hypertension; E78.5 Hyperlipidemia, unspecified; R53.83 Other fatigue
CPT/HCPCS: 36415; 80053; 80061; 84443; 85025

== ENCOUNTER 2020-01-11 12:49 | Inpatient (IN) | payer MEDICARE, MEDICAID ==
[2020-01-11] MEDS ORDERED: NORMAL SALINE 1000 ML 1,000 ML IV ONE ×2 (14:11→19:04)
--- NOTE | 2020-01-11 14:19 | ER Document Report ---
ED Medical Screen (RME) - General Chief Complaint: Abdominal Pain Stated Complaint: VOMITING Time Seen by Provider: 01/11/20 14:10 Primary Care Provider: PASCUAL GIORDANO MD [Primary Care Provider] - Follow up as needed Mode of Arrival: Ambulatory Information source: Patient TRAVEL OUTSIDE OF THE [place] IN LAST 30 DAYS: No - HPI Notes: 01/11/20 15:32 54-year-old female history of hypertension, diabetes and COPD presents to the emergency room with abdominal pain that started last night after eating pork chops mac & cheese and a plum. States that she felt nauseous herself to vomit last night. Reports pain comes and goes. She tried agug-spi-vwnqubf Gas-X and Pepto-Bismol without relief. Patient states that her pain seems similar to what she had in the past which was a partial bowel obstruction. Denies any chest pain, shortness of breath. Denies any fevers or chills. States her last bowel movement was this morning and it was a small bowel movement. Denies any melena, hemoptysis, upper or lower GI bleeds I have greeted and performed a rapid initial assessment of this patient. A comprehensive ED assessment and evaluation of the patient, analysis of test results and completion of the medical decision making process will be conducted by additional ED providers. PHYSICAL EXAMINATION: GENERAL: Well-appearing, well-nourished and in no acute distress. HEAD: Atraumatic, normocephalic. EYES: Pupils equal round extraocular movements intact, conjunctiva are normal. NECK: Normal range of motion CV: s1, s2 regular LUNGS: No respiratory distress abd: generalized abd pain - Related Data Allergies/Adverse Reactions: No Known Allergies Allergy (Verified 01/11/20 14:15) Home Medications: bp. dm. pain. psych Past Medical History - Social History Chew tobacco use (# tins/day): No Frequency of alcohol use: Rare Drug Abuse: None - Past Medical History Cardiac Medical History: Reports: Hx Hypertension Pulmonary Medical History: Reports: Hx COPD Endocrine Medical History: Reports: Hx Diabetes Mellitus Type 2 - non-insulin dependent Renal/ Medical History: Denies: Hx Peritoneal Dialysis Musculoskeltal Medical History: Reports Hx Arthritis Psychiatric Medical History: Reports: Hx Depression - Currently on medication Past Surgical History: Reports: Hx Hysterectomy, Hx Orthopedic Surgery - knee - Immunizations Hx Diphtheria, Pertussis, Tetanus Vaccination: Yes Course - Laboratory Laboratory results interpreted by me: 01/11/20 15:14 POC Glucose 172 H Doctor's Discharge - Discharge Referrals: PASCUAL GIORDANO MD [Primary Care Provider] - Follow up as needed
--- NOTE | 2020-01-11 14:54 | ER Document Report ---
ED GI/ - General Chief Complaint: Abdominal Pain Stated Complaint: VOMITING Time Seen by Provider: 01/11/20 14:10 Notes: 54-year-old female presented to ED for the last abdominal pain nausea and vomiting. She states it does not matter what she takes her does she continues to have abdominal pain and nausea vomiting. She states she has had a small bowel obstruction in the past and she had to have an NG tube down her nose to drain her stomach. She states she did have a small bowel movement this morning but it was very scant smearing but no formed stool. She states she has not had any fevers. She states the pain comes and goes but at times it is very severe. She did have active bowel sounds when I first examined her. Patient is alert oriented respirations regular nonlabored speaking in full sentences. TRAVEL OUTSIDE OF THE [place] IN LAST 30 DAYS: No - HPI Patient complains to provider of: Abdominal pain, Vomiting Onset: Yesterday Timing/Duration: Gradual, Intermittent Quality of pain: Sharp Severity at maximum: Severe Severity in ED: Severe Pain Level: 5 Location: Other - Generalized Associated symptoms: Loss of appetite, Nausea, Vomiting Exacerbated by: Denies Relieved by: Denies Similar symptoms previously: Yes Recently seen / treated by doctor: Yes - Related Data Allergies/Adverse Reactions: No Known Allergies Allergy (Verified 01/11/20 14:15) Home Medications: bp. dm. pain. psych Past Medical History - General Information source: Patient - Social History Smoking Status: Never Smoker Chew tobacco use (# tins/day): No Frequency of alcohol use: Rare Drug Abuse: None Lives with: Family Family History: Reviewed & Not Pertinent Patient has homicidal ideation: No - Past Medical History Cardiac Medical History: Reports: Hx Hypertension Pulmonary Medical History: Reports: Hx COPD EENT Medical History: Reports: None Neurological Medical History: Reports: None Endocrine Medical History: Reports: Hx Diabetes Mellitus Type 2 - non-insulin dependent Renal/ Medical History: Reports: None Malignancy Medical History: Reports: None GI Medical History: Reports: Hx Colonoscopy, Other - Small bowel obstruction Musculoskeletal Medical History: Reports Hx Arthritis Skin Medical History: Reports None Psychiatric Medical History: Reports: Hx Depression - Currently on medication Traumatic Medical History: Reports: None Infectious Medical History: Reports: None Past Surgical History: Reports: Hx Hysterectomy, Hx Orthopedic Surgery - knee - Immunizations Hx Diphtheria, Pertussis, Tetanus Vaccination: Yes Review of Systems - Review of Systems Constitutional: No symptoms reported EENT: No symptoms reported Cardiovascular: No symptoms reported Respiratory: No symptoms reported Gastrointestinal: Abdominal pain, Nausea, Vomiting Genitourinary: No symptoms reported Female Genitourinary: No symptoms reported Musculoskeletal: No symptoms reported Skin: No symptoms reported Hematologic/Lymphatic: No symptoms reported Neurological/Psychological: No symptoms reported -: Yes All other systems reviewed and negative Physical Exam - Vital signs Vitals: Temp Pulse Resp BP Pulse Ox 98.0 F 81 20 153/91 H 98 01/11/20 15:11 01/11/20 15:11 01/11/20 15:11 01/11/20 15:11 01/11/20 15:11 Interpretation: Normal - General General appearance: Appears well, Alert - HEENT Head: Normocephalic, Atraumatic Eyes: Normal Pupils: PERRL - Respiratory Respiratory status: No respiratory distress Chest status: Nontender Breath sounds: Normal Chest palpation: Normal - Cardiovascular Rhythm: Regular Heart sounds: Normal auscultation Murmur: No - Abdominal Inspection: Normal Distension: No distension Bowel sounds: Hyperactive Tenderness: Tender Organomegaly: No organomegaly - Back Back: Normal, Nontender - Extremities General upper extremity: Normal inspection, Nontender, Normal color, Normal ROM, Normal temperature General lower extremity: Normal inspection, Nontender, Normal color, Normal ROM, Normal temperature, Normal weight bearing. No: Ejssica's sign - Neurological Neuro grossly intact: Yes Cognition: Normal Orientation: AAOx4 Angie Coma Scale Eye Opening: Spontaneous Angie Coma Scale Verbal: Oriented Angie Coma Scale Motor: Obeys Commands Angie Coma Scale Total: 15 Speech: Normal Motor strength normal: LUE, RUE, LLE, RLE Sensory: Normal - Psychological Associated symptoms: Normal affect, Normal mood - Skin Skin Temperature: Warm Skin Moisture: Dry Skin Color: Normal Course - Re-evaluation Re-evalutation: 01/11/20 18:[address] Witt concerning of small bowel obstruction. Patient does have a history of small bowel obstruction in the past. He will be down to see the patient. Having formed him that she does have a history of COPD diabetes and has not had previous abdominal surgeries but she has had previous small bowel obstructions. - Vital Signs Vital signs: Temp Pulse Resp BP Pulse Ox 99.5 F 98 16 143/81 H 99 01/12/20 00:22 01/12/20 00:22 01/12/20 00:22 01/12/20 00:22 01/12/20 00:22 - Laboratory Result Diagrams: 01/11/20 15:32 01/11/20 15:32 Laboratory results interpreted by me: 01/11/20 01/11/20 01/11/20 15:14 15:32 15:32 Lymph % (Auto) 12.7 L Seg Neutrophils % 82.3 H VBG pH VBG HCO3 Potassium 3.5 L Chloride 95 L Carbon Dioxide 33 H Glucose 174 H POC Glucose 172 H Calcium 10.6 H Total Protein 8.6 H Urine Protein Urine Ketones 01/11/20 01/11/20 15:32 16:36 Lymph % (Auto) Seg Neutrophils % VBG pH 7.44 H VBG HCO3 33.6 H Potassium Chloride Carbon Dioxide Glucose POC Glucose Calcium Total Protein Urine Protein 30 H Urine Ketones TRACE H - Diagnostic Test Radiology reviewed: Image reviewed, Reports reviewed Discharge - Discharge Clinical Impression: Small bowel obstruction Disposition: ADMITTED INPATIENT Admitting Provider: Surgicalist - [facility] Unit Admitted: Medical Floor
[2020-01-11] MEDS ORDERED: KETOROLAC TROMETHAMINE INJ/PF 30 MG/1 ML SDV IV ONE (15:22)
[2020-01-11] MEDS: ONDANSETRON 4 MG TAB.RAPDIS PO ONE ×2 (15:24→15:38)
[2020-01-11] MEDS ORDERED: ONDANSETRON HCL INJ/PF 4 MG/2 ML SDV IV ONE (15:25)
[2020-01-11 15:54] LABS: ABSOLUTE LYMPHOCYTES (AUTO) 1.2 10^3/uL (0.5-4.7); ABSOLUTE MONOCYTES (AUTO) 0.4 10^3/uL (0.1-1.4); ABSOLUTE NEUT (AUTO) 7.8 10^3/uL (1.7-8.2); BASOPHILS % (AUTO) 0.4 % (0-2); HEMATOCRIT 44.6 % (36.0-47.0); HEMOGLOBIN 15.1 g/dL (12.0-15.5); LYMPHOCYTES % (AUTO) 12.7 % (13-45); MEAN CORPUSCULAR HEMOGLOBIN 30.6 pg (27.0-33.4); MEAN CORPUSCULAR HGB CONC 33.9 g/dL (32.0-36.0); MEAN CORPUSCULAR VOLUME 90 fl (80-97); MONOCYTES % (AUTO) 4.6 % (3-13); PLATELET COUNT 347 10^3/uL (150-450); RED BLOOD COUNT 4.95 10^6/uL (3.72-5.28); SEGMENTED NEUTROPHILS % (AUTO) 82.3 % (42-78); TOTAL CELLS COUNTED % (AUTO) 100 %; WHITE BLOOD COUNT 9.5 10^3/uL (4.0-10.5)
[2020-01-11 15:58] LABS: VENOUS BLOOD BASE EXCESS 7.7 mmol/L; VENOUS BLOOD HCO3 33.6 mmol/L (20-32); VENOUS BLOOD PCO2 51.2 mmHg (35-63); VENOUS BLOOD PH 7.44 (7.30-7.42)
[2020-01-11 16:12] LABS: ALBUMIN 4.9 g/dL (3.5-5.0); ALKALINE PHOSPHATASE 89 U/L (38-126); ANION GAP 10 (5-19); ASPARTATE AMINO TRANSFERASE 22 U/L (14-36); BILIRUBIN,DIRECT 0.1 mg/dL (0.0-0.4); BILIRUBIN,TOTAL 0.9 mg/dL (0.2-1.3); BLOOD UREA NITROGEN 11 mg/dL (7-20); CALCIUM 10.6 mg/dL (8.4-10.2); CARBON DIOXIDE 33 mmol/L (22-30); CHLORIDE 95 mmol/L (98-107); GLUCOSE 174 mg/dL (75-110); POTASSIUM 3.5 mmol/L (3.6-5.0); TOTAL PROTEIN 8.6 g/dL (6.3-8.2)
[2020-01-11 17:14] LABS: APPEARANCE,URINE SLIGHTLY-CLOUDY; BILIRUBIN,URINE NEGATIVE (NEGATIVE); COLOR,URINE YELLOW; GLUCOSE, URINE NEGATIVE (NEGATIVE); KETONES,URINE TRACE mg/dL (NEGATIVE); LEUKOCYTE ESTERASE,URINE NEGATIVE (NEGATIVE); NITRITE,URINE NEGATIVE (NEGATIVE); PROTEIN,URINE 30 mg/dL (NEGATIVE); URINE SPECIFIC GRAVITY 1.016; UROBILINOGEN,URINE NEGATIVE mg/dL (<2.0)
[2020-01-11] MEDS ORDERED: MORPHINE SULFATE 10 MG/ML INJ IV ONE (17:31)
--- NOTE | 2020-01-11 18:04 | RADIOLOGY REPORT (SQ) ---
EXAM DESCRIPTION: CT ABD/PELVIS WITH IV ORAL IMAGES COMPLETED DATE/TIME: 01/11/2020 5:28 pm REASON FOR STUDY: abd pain, vomiting, hx of sbo COMPARISON: 03/31/2017 TECHNIQUE: CT scan of the abdomen and pelvis performed using helical scanning technique with dynamic intravenous contrast injection. No oral contrast. Images reviewed with lung, soft tissue, and bone windows. Reconstructed coronal and sagittal MPR images reviewed. Delayed images for evaluation of the urinary system also acquired. All images stored on PACS. All CT scanners at this facility use dose modulation, iterative reconstruction, and/or weight based d osing when appropriate to reduce radiation dose to as low as reasonably achievable (ALARA). [facility]: Dose Right [facility]: CareDose [facility]: Dose Right [facility]: Teradose 4D [facility]: [employer] CONTRAST TYPE AND DOSE: contrast/concentration: Isovue 350.00 mmol/ml; Total Contrast Delivered: 99. 0 ml; Total Saline Delivered: 57.0 ml RENAL FUNCTION: Creatinine -0.57 BUN =11 RADIATION DOSE: CT Rad equipment meets quality standard of care and radiation dose reduction techniq ues were employed. CTDIvol: 14.3 - 18.5 mGy. DLP: 1867 mGy-cm.. LIMITATIONS: None. FINDINGS: LOWER CHEST: No significant interval changes. LIVER: Very tiny too small to characterize hypoattenuated hepatic lesion. No dilated ducts. The he patic and portal veins are patent. SPLEEN: Normal size. No focal lesions. PANCREAS: No masses. No significant calcifications. No adjacent inflammation or peripancreatic fluid collections. Pancreatic duct not dilated. GALLBLADDER: No identified stones by CT criteria. No inflammatory changes to suggest cholecystitis. ADRENAL GLANDS: No significant masses or asymmetry. RIGHT KIDNEY AND URETER: No solid masses. No significant calcifications. No hydronephrosis or hyd roureter. LEFT KIDNEY AND URETER: Stable too small to characterize left renal lesion, probably benign. No sign ificant calcifications. No hydronephrosis or hydroureter. AORTA AND VESSELS: No aneurysm. No dissection. Renal arteries, SMA, celiac without stenosis. RETROPERITONEUM: No retroperitoneal adenopathy, hemorrhage or masses. BOWEL AND PERITONEAL CAVITY: There are dilated fluid filled proximal small bowel loops in the mid ab domen and left side of the abdomen with a transition zone suggested in the mid abdomen, Coronal image 24, series 602. The distal small bowel loops and colon are collapsed. Small collections of free fl uid in the midline to the left abdomen, coronal image 28 and 35, series 602. The etiology of this fi nding is not identified. Considerations for this finding includes incomplete small bowel obstruction . Stable small nonenlarged mesenteric lymph nodes right lower quadrant of the abdomen. APPENDIX: Not visualized. PELVIS: Prior hysterectomy. No free fluid. Normal bladder. ABDOMINAL WALL: No masses. No hernias. BONES: The osseous structures are stable in appearance. OTHER; No other significant finding. IMPRESSION: 1. The constellation of findings as above suggest an incomplete small bowel obstruction . The transition zone is suggested in the mid abdomen. The etiology of these finding is not identif ied. 2. NO SIGNIFICANT OR ACUTE FINDING IN THE ABDOMEN OR PELVIS ON CT SCAN WITH IV CONTRAST. COMMENT: 1. The results of this examination were discussed with the emergency department administrative law judge o n 01/11/2020 and 17:57 hours. TECHNICAL DOCUMENTATION: JOB ID: [id number] Quality ID # [id number]: Final reports with documentation of one or more dose reduction techniques (e.g., Au tomated exposure control, adjustment of the mA and/or kV according to patient size, use of iterative reconstruction technique) 2010 [employer]- All Rights Reserved Reading location - IP/workstation name: [email or web address]
[2020-01-11] MEDS ORDERED: GLUCAGON,HUMAN RECOMB 1 MG INJ SUBCUT PRN (19:38)
[2020-01-11] MEDS ORDERED: DEXTROSE 50%-WATER 25 GM/50 ML DISP.SYRIN IV PRN ×2 (19:38)
[2020-01-11] MEDS ORDERED: DEXTROSE 40% GEL 15 GM TUBE PO PRN ×2 (19:38)
--- NOTE | 2020-01-11 19:38 | PDOC H&P ---
History of Present Illness Admission Date/PCP: 01/11/20 19:28 PASCUAL GIORDANO MD 54-year-old female history of hypertension, diabetes and COPD presents to the emergency room with abdominal pain that started last night after eating pork chops mac & cheese and a plum. States that she felt nauseous herself to vomit last night. Reports pain comes and goes. She tried [id number] Gas-X and Pepto-Bismol without relief. Patient states that her pain seems similar to what she had in the past which was a partial bowel obstruction. Denies any chest pain, shortness of breath. Denies any fevers or chills. States her last bowel movement was this morning and it was a small bowel movement. Denies any melena, hemoptysis, upper or lower GI bleeds she states she has been admitted for small bowel obstructions in the past and has been treated nonoperatively History of Present Illness: GRANT CAGE is a 54 year old female Past Medical History Cardiac Medical History: Reports: Hypertension Pulmonary Medical History: Reports: Chronic Obstructive Pulmonary Disease (COPD) EENT Medical History: Reports: None Neurological Medical History: Reports: None Endocrine Medical History: Reports: Diabetes Mellitus Type 2 - non-insulin dependent Renal/ Medical History: Reports: None Malignancy Medical History: Reports: None GI Medical History: Reports: Other - Small bowel obstruction Musculoskeltal Medical History: Reports: Arthritis Skin Medical History: Reports: None Psychiatric Medical History: Reports: Depression - Currently on medication Traumatic Medical History: Reports: None Infectious Medical History: Reports: None Past Surgical History Past Surgical History: Reports: Hysterectomy, Orthopedic Surgery - knee Social History Lives with: Family Smoking Status: Never Smoker Electronic Cigarette use?: No Hx Recreational Drug Use: No Drugs: Other Hx Prescription Drug Abuse: No Family History Family History: Reviewed & Not Pertinent Parental Family History Reviewed: No Children Family History Reviewed: NA Sibling(s) Family History Reviewed.: NA Medication/Allergy Home Medications: Amlodipine Besylate [Norvasc 10 mg Tablet] 10 mg PO DAILY 03/31/17 Fluoxetine HCl [Prozac 20 mg Capsule] 60 mg PO DAILY 03/31/17 Hydrochlorothiazide [Hydrodiuril 25 mg Tablet] 25 mg PO DAILY 03/31/17 Metformin HCl [Metformin HCl ER] 500 mg PO QPM 03/31/17 Allergies/Adverse Reactions: No Known Allergies Allergy (Verified 01/11/20 14:15) Review of Systems Constitutional: ABSENT: as per HPI, anorexia, chills, fatigue, fever(s), headache(s), night sweats, weakness, weight gain, weight loss, other Eyes: ABSENT: as per HPI, visual disturbances, other Ears: ABSENT: as per HPI, hearing changes, other Nose, Mouth, and Throat: ABSENT: as per HPI, headache(s), mouth pain, sore throat, vertigo, other Breasts: ABSENT: as per HPI, other Cardiovascular: ABSENT: as per HPI, chest pain, dyspnea on exertion, edema, orthropnea, palpitations, other Respiratory: ABSENT: as per HPI, cough, dyspnea, hemoptysis, sputum, other Gastrointestinal: PRESENT: abdominal pain, bloating, constipation, nausea, vomiting Genitourinary: ABSENT: as per HPI, difficulty urinating, dysuria, hematuria, nocturia, other Musculoskeletal: ABSENT: as per HPI, back pain, deformity, joint swelling, muscle weakness, other Integumentary: ABSENT: as per HPI, diaphoresis, erythema, lesions, pruritus, rash, wounds, other Neurological: ABSENT: as per HPI, abnormal gait, abnormal movements, abnormal speech, confusion, convulsions, dizziness, focal weakness, frequent falls, lack of coordination, memory loss, numbness, paresthesias, restless legs, syncope, tingling, tremor(s), vertigo, weakness, other Psychiatric: ABSENT: as per HPI, anxiety, depression, hallucinations, homidical ideation, suicidal ideation, other Endocrine: ABSENT: as per HPI, cold intolerance, flushing, heat intolerance, menstrual abnormalities, polydipsia, polyphagia, polyuria, other Hematologic/Lymphatic: ABSENT: as per HPI, easy bleeding, easy bruising, lymphadenopathy, other Allergic/Immunologic: ABSENT: as per HPI, seasonal rhinorrhea, other Physical Exam Vital Signs: Temp Pulse Resp BP Pulse Ox 98.0 F 81 20 153/91 H 98 01/11/20 15:11 01/11/20 15:11 01/11/20 15:11 01/11/20 15:11 01/11/20 15:11 Intake & Output 01/10/20 01/11/20 01/12/20 06:59 06:59 06:59 Intake Total 1000 Balance 1000 Weight 100.698 kg General appearance: PRESENT: mild distress Head exam: PRESENT: normocephalic Eye exam: PRESENT: EOMI Ear exam: PRESENT: normal external ear exam Mouth exam: PRESENT: moist Teeth exam: PRESENT: edentulous, poor dentation Neck exam: PRESENT: full ROM Respiratory exam: PRESENT: clear to auscultation jose Cardiovascular exam: PRESENT: RRR Breast: PRESENT: Normal GI/Abdominal exam: PRESENT: firm, tenderness - Tenderness to deep palpation however no rebound tenderness Rectal exam: PRESENT: deferred Extremities exam: PRESENT: full ROM Musculoskeletal exam: PRESENT: full ROM Neurological exam: PRESENT: alert, awake, oriented to person, oriented to place Psychiatric exam: PRESENT: appropriate affect Skin exam: PRESENT: dry Results Laboratory Results: 01/11/20 15:32 01/11/20 15:32 01/11/20 01/11/20 01/11/20 15:32 15:32 15:32 WBC 9.5 RBC 4.95 Hgb 15.1 Hct 44.6 MCV 90 MCH 30.6 MCHC 33.9 RDW 14.0 Plt Count 347 Seg Neutrophils % 82.3 H VBG pH VBG pCO2 VBG HCO3 VBG Base Excess Sodium 137.6 Potassium 3.5 L Chloride 95 L Carbon Dioxide 33 H Anion Gap 10 BUN 11 Creatinine 0.57 Est GFR ( Amer) > 60 Glucose 174 H Lactic Acid 1.8 Calcium 10.6 H Total Bilirubin 0.9 AST 22 Alkaline Phosphatase 89 Total Protein 8.6 H Albumin 4.9 Urine Color Urine Appearance Urine pH Ur Specific [place] Urine Protein Urine Glucose (UA) Urine Ketones Urine Blood Urine Nitrite Ur Leukocyte Esterase Urine WBC (Auto) Urine RBC (Auto) 01/11/20 01/11/20 15:32 16:36 WBC RBC Hgb Hct MCV MCH MCHC RDW Plt Count Seg Neutrophils % VBG pH 7.44 H VBG pCO2 51.2 VBG HCO3 33.6 H VBG Base Excess 7.7 Sodium Potassium Chloride Carbon Dioxide Anion Gap BUN Creatinine Est GFR ( Amer) Glucose Lactic Acid Calcium Total Bilirubin AST Alkaline Phosphatase Total Protein Albumin Urine Color YELLOW Urine Appearance SLIGHTLY-CLOUDY Urine pH 7.0 Ur Specific [place] 1.016 Urine Protein 30 H Urine Glucose (UA) NEGATIVE Urine Ketones TRACE H Urine Blood NEGATIVE Urine Nitrite NEGATIVE Ur Leukocyte Esterase NEGATIVE Urine WBC (Auto) 2 Urine RBC (Auto) 8 Impressions: Abdomen/Pelvis CT 01/11/20 14:17 IMPRESSION: 1. The constellation of findings as above suggest an incomplete small bowel obstruction. The transition zone is suggested in the mid abdomen. The etiology of these finding is not identified. 2. NO SIGNIFICANT OR ACUTE FINDING IN THE ABDOMEN OR PELVIS ON CT SCAN WITH IV CONTRAST. Assessment & Plan - Plan Summary Plan Summary: 54-year-old female who presents with a small bowel obstruction on physical examination and x-ray studies. She has had a previous hysterectomy through a midline incision and has had previous admissions for small bowel obstructions treated with NG suction and bowel rest. Plan admit the patient for IV hydration and NG suction bowel rest Minimize pain medicine Explained to the patient that she may in fact need surgical intervention if this obstruction does not resolve with medical management.
[2020-01-11] MEDS ORDERED: PHARMACY COMMUNICATION ORDER MC NR (19:45)
[2020-01-11] MEDS: MORPHINE SULFATE 10 MG/ML INJ IV PRN (20:03)
--- NOTE | 2020-01-11 20:21 | RADIOLOGY REPORT (SQ) ---
EXAM DESCRIPTION: XR ABDOMEN 1 VIEW (KUB) COMPLETED DATE/TME: 01/11/2020 00:00 CLINICAL HISTORY: 54 years, Female, NG tube placement COMPARISON: Prior CT from earlier the same day NUMBER OF VIEWS: One TECHNIQUE: Single view of the abdomen was obtained portably LIMITATIONS: None. FINDINGS: Enteric drainage tube tip curls within the gastric fundus/cardia. Hyperdensity is noted about both renal collecting systems, indicating excretion of previously administered intravenous contrast material. Bowel gas pattern is indeterminate as the lower half of the abdomen was excluded from the [id number]. IMPRESSION: Enteric drainage tube tip curls within the gastric fundus/cardia. copyright 2010 [employer]- All Rights Reserved
[2020-01-11] MEDS: FAMOTIDINE INJ/PF 20 MG/2 ML SDV IV SCH (23:39)
[2020-01-12] MEDS: POTASSI CL 20 MEQ/1/2NS 1L 20 MEQ/1,000 ML RTUINJ IV PRN ×4 (01:37→22:33)
[2020-01-12] MEDS: MORPHINE SULFATE 10 MG/ML INJ IV PRN (01:48)
[2020-01-12] MEDS ORDERED: MORPHINE SULFATE 10 MG/ML INJ IV PRN (07:35)
[2020-01-12 07:58] LABS: ANION GAP 5 (5-19); BLOOD UREA NITROGEN 9 mg/dL (7-20); CALCIUM 9.3 mg/dL (8.4-10.2); CARBON DIOXIDE 31 mmol/L (22-30); CHLORIDE 101 mmol/L (98-107); GLUCOSE 147 mg/dL (75-110); POTASSIUM 3.4 mmol/L (3.6-5.0)
[2020-01-12 07:59] LABS: ABSOLUTE NEUT (AUTO) 6.6 10^3/uL (1.7-8.2); BASOPHILS % (AUTO) 0.3 % (0-2); EOSINOPHILS % (AUTO) 0.2 % (0-6); HEMATOCRIT 37.8 % (36.0-47.0); LYMPHOCYTES % (AUTO) 20.7 % (13-45); MEAN CORPUSCULAR HEMOGLOBIN 30.9 pg (27.0-33.4); MEAN CORPUSCULAR HGB CONC 34.2 g/dL (32.0-36.0); MEAN CORPUSCULAR VOLUME 90 fl (80-97); MONOCYTES % (AUTO) 10.1 % (3-13); PLATELET COUNT 306 10^3/uL (150-450); RED BLOOD COUNT 4.19 10^6/uL (3.72-5.28); RED CELL DISTRIBUTION WIDTH 14.2 % (11.5-14.0); SEGMENTED NEUTROPHILS % (AUTO) 68.7 % (42-78); TOTAL CELLS COUNTED % (AUTO) 100 %; WHITE BLOOD COUNT 9.6 10^3/uL (4.0-10.5)
[2020-01-12 08:13] LABS: HEMOGLOBIN 12.9 g/dL (12.0-15.5)
[2020-01-12] MEDS: KETOROLAC TROMETHAMINE INJ/PF 30 MG/1 ML SDV IV PRN ×3 (08:28→22:33)
[2020-01-12] MEDS: FAMOTIDINE INJ/PF 20 MG/2 ML SDV IV SCH ×2 (09:55→22:33)
--- NOTE | 2020-01-12 10:17 | PDOC PROGRESS REPORT ---
Subjective Progress Note for:: 01/12/20 Subjective:: This is a 54-year-old female admitted with a small bowel obstruction. It is likely related to her previous abdominal surgeries. She has had similar symptoms in the past, which always resolved with NG decompression. Today, the patient reports that her abdominal pain has resolved. She denies nausea or vomiting. She denies passing flatus. Her NG tube remains productive of bilious output. She denies chest pain, shortness of breath, headache, dizziness, orthostasis, fevers, chills. Reason For Visit: SMALL BOWEL OBSTRUCTION Physical Exam Vital Signs: Temp Pulse Resp BP Pulse Ox 99.6 F 88 16 155/79 H 94 01/12/20 07:21 01/12/20 07:21 01/12/20 07:21 01/12/20 07:21 01/12/20 07:21 Intake & Output 01/11/20 01/12/20 01/13/20 06:59 06:59 06:59 Intake Total 1893 1000 Output Total 400 Balance 1493 1000 Weight 100.61 kg General appearance: PRESENT: no acute distress, cooperative Head exam: PRESENT: atraumatic, normocephalic Eye exam: PRESENT: EOMI, PERRLA. ABSENT: scleral icterus Mouth exam: PRESENT: neck supple Neck exam: ABSENT: meningismus, tenderness, thyromegaly, tracheal deviation Respiratory exam: PRESENT: unlabored. ABSENT: tachypnea, wheezes Cardiovascular exam: ABSENT: tachycardia GI/Abdominal exam: PRESENT: soft. ABSENT: distended, firm, guarding, rebound, rigid, tenderness Rectal exam: PRESENT: deferred Musculoskeletal exam: ABSENT: deformity Neurological exam: PRESENT: alert, awake, oriented to person, oriented to place, oriented to time, oriented to situation, CN II-XII grossly intact Psychiatric exam: ABSENT: agitated, anxious, depressed Focused psych exam: ABSENT: delusional Skin exam: ABSENT: cyanosis, erythema, jaundice Results Laboratory Results: 01/12/20 07:14 01/12/20 07:14 01/11/20 01/11/20 01/11/20 15:32 15:32 15:32 WBC 9.5 RBC 4.95 Hgb 15.1 Hct 44.6 MCV 90 MCH 30.6 MCHC 33.9 RDW 14.0 Plt Count 347 Seg Neutrophils % 82.3 H VBG pH VBG pCO2 VBG HCO3 VBG Base Excess Sodium 137.6 Potassium 3.5 L Chloride 95 L Carbon Dioxide 33 H Anion Gap 10 BUN 11 Creatinine 0.57 Est GFR ( Amer) > 60 Glucose 174 H Lactic Acid 1.8 Calcium 10.6 H Total Bilirubin 0.9 AST 22 Alkaline Phosphatase 89 Total Protein 8.6 H Albumin 4.9 Urine Color Urine Appearance Urine pH Ur Specific [place] Urine Protein Urine Glucose (UA) Urine Ketones Urine Blood Urine Nitrite Ur Leukocyte Esterase Urine WBC (Auto) Urine RBC (Auto) 01/11/20 01/11/20 01/12/20 15:32 16:36 07:14 WBC 9.6 RBC 4.19 Hgb 12.9 D Hct 37.8 MCV 90 MCH 30.9 MCHC 34.2 RDW 14.2 H Plt Count 306 Seg Neutrophils % 68.7 VBG pH 7.44 H VBG pCO2 51.2 VBG HCO3 33.6 H VBG Base Excess 7.7 Sodium Potassium Chloride Carbon Dioxide Anion Gap BUN Creatinine Est GFR ( Amer) Glucose Lactic Acid Calcium Total Bilirubin AST Alkaline Phosphatase Total Protein Albumin Urine Color YELLOW Urine Appearance SLIGHTLY-CLOUDY Urine pH 7.0 Ur Specific [place] 1.016 Urine Protein 30 H Urine Glucose (UA) NEGATIVE Urine Ketones TRACE H Urine Blood NEGATIVE Urine Nitrite NEGATIVE Ur Leukocyte Esterase NEGATIVE Urine WBC (Auto) 2 Urine RBC (Auto) 8 01/12/20 07:14 WBC RBC Hgb Hct MCV MCH MCHC RDW Plt Count Seg Neutrophils % VBG pH VBG pCO2 VBG HCO3 VBG Base Excess Sodium 137.2 Potassium 3.4 L Chloride 101 Carbon Dioxide 31 H Anion Gap 5 BUN 9 Creatinine 0.52 Est GFR ( Amer) > 60 Glucose 147 H Lactic Acid Calcium 9.3 Total Bilirubin AST Alkaline Phosphatase Total Protein Albumin Urine Color Urine Appearance Urine pH Ur Specific [place] Urine Protein Urine Glucose (UA) Urine Ketones Urine Blood Urine Nitrite Ur Leukocyte Esterase Urine WBC (Auto) Urine RBC (Auto) Impressions: KUB X-Ray 01/11/20 00:00 IMPRESSION: Enteric drainage tube tip curls within the gastric fundus/cardia. copyright 2010 [employer]- All Rights Reserved Abdomen/Pelvis CT 01/11/20 14:17 IMPRESSION: 1. The constellation of findings as above suggest an incomplete small bowel obstruction. The transition zone is suggested in the mid abdomen. The etiology of these finding is not identified. 2. NO SIGNIFICANT OR ACUTE FINDING IN THE ABDOMEN OR PELVIS ON CT SCAN WITH IV CONTRAST. Assessment & Plan - Diagnosis (1) Partial small bowel obstruction Is this a current diagnosis for this admission?: Yes - Time Anticipated Discharge Disposition: Home, Self Care Anticipated Discharge: Other - Plan Summary Plan Summary: 54-year-old female with a small bowel obstruction. She is hospital day #2. Con tinue NG tube for now. X-rays tomorrow. Hopefully conservative therapy will resolve her obstruction. If not, she may require operative intervention. This has been discussed with the patient at length. She is in agreement with the treatment plan. Further recommendations will depend upon the patient's clinical course.
[2020-01-12] MEDS ORDERED: GLUCAGON,HUMAN RECOMB 1 MG INJ IM PRN (18:30)
[2020-01-12] MEDS ORDERED: DEXTROSE 40% GEL 15 GM TUBE X 2 PO PRN (18:30)
[2020-01-12] MEDS ORDERED: DEXTROSE 40% GEL 15 GM TUBE PO PRN (18:30)
[2020-01-12] MEDS ORDERED: DEXTROSE 50%-WATER SYRINGE 25 GM/50 ML DOSE IV PRN (18:30)
[2020-01-12] MEDS ORDERED: DEXTROSE 50%-WATER SYRINGE 12.5 GM/25 ML DOSE IV PRN (18:30)
[2020-01-12] MEDS: INSULIN LISPRO 100 UNIT/ML 3 ML VIAL SUBCUT SCH (21:38)
[2020-01-13] MEDS: KETOROLAC TROMETHAMINE INJ/PF 30 MG/1 ML SDV IV PRN ×3 (04:40→17:11)
[2020-01-13] MEDS: POTASSI CL 20 MEQ/1/2NS 1L 20 MEQ/1,000 ML RTUINJ IV PRN (04:50)
--- NOTE | 2020-01-13 08:49 | RADIOLOGY REPORT (SQ) ---
EXAM DESCRIPTION: ABDOMEN 2 VIEWS IMAGES COMPLETED DATE/TIME: 01/13/2020 8:34 am REASON FOR STUDY: f/u sbo COMPARISON: 01/11/2020 NUMBER OF VIEWS: Two views. TECHNIQUE: Supine and erect/decubitus radiographic images of the abdomen acquired. LIMITATIONS: None. FINDINGS: FREE AIR: None. No abnormal gas collections. LUNG BASES: Clear. BOWEL GAS PATTERN: Nonobstructive pattern. No dilated loops or air fluid levels. CALCIFICATIONS: No suspicious calcifications. SOFT TISSUES: No gross mass or suggestion of organomegaly. HARDWARE: None in the abdomen. BONES: No acute fracture. No worrisome bone lesions. OTHER: Nasogastric tube in the stomach. IMPRESSION: No evidence of bowel obstruction. TECHNICAL DOCUMENTATION: JOB ID: [id number] 2010 [employer]- All Rights Reserved Reading location - IP/workstation name: [email or web address]
[2020-01-13] MEDS: INSULIN LISPRO 100 UNIT/ML 3 ML VIAL SUBCUT SCH ×4 (08:51→22:45)
[2020-01-13] MEDS: FAMOTIDINE INJ/PF 20 MG/2 ML SDV IV SCH ×2 (10:14→22:23)
--- NOTE | 2020-01-13 10:55 | PDOC PROGRESS REPORT ---
Subjective Progress Note for:: 01/13/20 Subjective:: Patient feels much better than before her admission. Passing gas. Abdomen nondistended. She has been taking in a lot of ice p.o. Reason For Visit: SMALL BOWEL OBSTRUCTION Physical Exam Vital Signs: Temp Pulse Resp BP Pulse Ox 98.2 F 84 18 133/70 H 97 01/13/20 07:14 01/13/20 07:14 01/13/20 07:14 01/13/20 07:14 01/13/20 07:14 Intake & Output 01/12/20 01/13/20 01/14/20 06:59 06:59 06:59 Intake Total 1893 3942 Output Total 400 3600 800 Balance 1493 342 -800 Weight 100.61 kg General appearance: PRESENT: no acute distress, cooperative Respiratory exam: PRESENT: clear to auscultation jose Cardiovascular exam: PRESENT: RRR GI/Abdominal exam: PRESENT: other - Soft, nondistended, nontender to palpation, normal bowel sounds. NG output has a bile tinged to it. However her KUB demonstrates NG tube into her duodenum. Results Laboratory Results: 01/12/20 07:14 01/12/20 07:14 Impressions: KUB X-Ray 01/11/20 00:00 IMPRESSION: Enteric drainage tube tip curls within the gastric fundus/cardia. copyright 2011 [employer]- All Rights Reserved Abdomen/Pelvis CT 01/11/20 14:17 IMPRESSION: 1. The constellation of findings as above suggest an incomplete small bowel obstruction. The transition zone is suggested in the mid abdomen. The etiology of these finding is not identified. 2. NO SIGNIFICANT OR ACUTE FINDING IN THE ABDOMEN OR PELVIS ON CT SCAN WITH IV CONTRAST. Abdomen X-Ray 01/13/20 00:00 IMPRESSION: No evidence of bowel obstruction. Assessment & Plan - Diagnosis (1) Partial small bowel obstruction Is this a current diagnosis for this admission?: Yes Plan: Appears to have resolved. Will DC NG tube. Large NG output secondary to her copious amount of ice intake and tip of the tube being in the duodenum. Start clear liquids. - Time Critical Time spent with patient: 15-24 minutes Anticipated Discharge Disposition: Home, Self Care Anticipated Discharge Timeframe: within 24 hours
--- NOTE | 2020-01-13 20:18 | PDOC PROGRESS REPORT ---
Subjective Progress Note for:: 01/13/20 Subjective:: Tolerating clears however has had some intermittent mild abdominal crampy pain. No nausea but has not had a bowel movement today. Reason For Visit: SMALL BOWEL OBSTRUCTION Physical Exam Vital Signs: Temp Pulse Resp BP Pulse Ox 97.5 F 71 18 140/73 H 100 01/13/20 14:57 01/13/20 14:57 01/13/20 14:57 01/13/20 14:57 01/13/20 14:57 Intake & Output 01/12/20 01/13/20 01/14/20 06:59 06:59 06:59 Intake Total 1893 3942 Output Total 400 3600 800 Balance 1493 342 -800 Weight 100.61 kg GI/Abdominal exam: PRESENT: other - Soft, nondistended, nontender to palpation. Results Laboratory Results: 01/12/20 07:14 01/12/20 07:14 Impressions: KUB X-Ray 01/11/20 00:00 IMPRESSION: Enteric drainage tube tip curls within the gastric fundus/cardia. copyright 2011 [email or web address]- All Rights Reserved Abdomen/Pelvis CT 01/11/20 14:17 IMPRESSION: 1. The constellation of findings as above suggest an incomplete small bowel obstruction. The transition zone is suggested in the mid abdomen. The etiology of these finding is not identified. 2. NO SIGNIFICANT OR ACUTE FINDING IN THE ABDOMEN OR PELVIS ON CT SCAN WITH IV CONTRAST. Abdomen X-Ray 01/13/20 00:00 IMPRESSION: No evidence of bowel obstruction. Assessment & Plan - Diagnosis (1) Partial small bowel obstruction Is this a current diagnosis for this admission?: Yes Plan: Appears to be tolerating her NG being out and being on clears but still not completely normal and she still has not had a bowel movement yet. We will ask her to hold off on any more p.o. intake tonight and repeat x-ray in the morning. If the KUB is abnormal will obtain a small bowel follow series. - Time Critical Time spent with patient: Less than 15 minutes Anticipated Discharge Disposition: Home, Self Care Anticipated Discharge Timeframe: within 48 hours
[2020-01-13] MEDS: NORMAL SALINE 1000 ML 1,000 ML IV PRN (22:23)
[2020-01-13] MEDS ORDERED: NORMAL SALINE 1000 ML 1,000 ML IV PRN (22:49)
[2020-01-14] MEDS: KETOROLAC TROMETHAMINE INJ/PF 30 MG/1 ML SDV IV PRN ×2 (00:53→11:51)
[2020-01-14 07:44] LABS: ABSOLUTE EOSINOPHILS # (AUTO) 0.1 10^3/uL (0.0-0.6); ABSOLUTE LYMPHOCYTES (AUTO) 1.9 10^3/uL (0.5-4.7); ABSOLUTE MONOCYTES (AUTO) 0.6 10^3/uL (0.1-1.4); ABSOLUTE NEUT (AUTO) 3.2 10^3/uL (1.7-8.2); BASOPHILS % (AUTO) 0.6 % (0-2); EOSINOPHILS % (AUTO) 1.6 % (0-6); HEMATOCRIT 36.3 % (36.0-47.0); HEMOGLOBIN 12.4 g/dL (12.0-15.5); LYMPHOCYTES % (AUTO) 32.2 % (13-45); MEAN CORPUSCULAR HEMOGLOBIN 30.8 pg (27.0-33.4); MEAN CORPUSCULAR VOLUME 90 fl (80-97); PLATELET COUNT 276 10^3/uL (150-450); RED BLOOD COUNT 4.02 10^6/uL (3.72-5.28); RED CELL DISTRIBUTION WIDTH 13.6 % (11.5-14.0); SEGMENTED NEUTROPHILS % (AUTO) 54.6 % (42-78); TOTAL CELLS COUNTED % (AUTO) 100 %; WHITE BLOOD COUNT 5.8 10^3/uL (4.0-10.5)
[2020-01-14 08:08] LABS: BLOOD UREA NITROGEN 9 mg/dL (7-20); CALCIUM 9.1 mg/dL (8.4-10.2); CARBON DIOXIDE 30 mmol/L (22-30); CHLORIDE 103 mmol/L (98-107); GLUCOSE 123 mg/dL (75-110); POTASSIUM 3.4 mmol/L (3.6-5.0)
[2020-01-14 08:14] LABS: ANION GAP 5 (5-19)
[2020-01-14] MEDS: INSULIN LISPRO 100 UNIT/ML 3 ML VIAL SUBCUT SCH ×4 (08:53→23:22)
--- NOTE | 2020-01-14 09:06 | RADIOLOGY REPORT (SQ) ---
EXAM DESCRIPTION: ABDOMEN 2 VIEWS IMAGES COMPLETED DATE/TIME: 01/14/2020 7:50 am REASON FOR STUDY: f/u sbo COMPARISON: 01/13/2020 NUMBER OF VIEWS: Two views. TECHNIQUE: Supine and erect/decubitus radiographic images of the abdomen acquired. LIMITATIONS: None. FINDINGS: FREE AIR: None. No abnormal gas collections. LUNG BASES: Clear. BOWEL GAS PATTERN: Large amount of stool throughout the colon. No evidence of mechanical obstruction . CALCIFICATIONS: No suspicious calcifications. SOFT TISSUES: No gross mass or suggestion of organomegaly. HARDWARE: NG tube is been removed. BONES: No acute fracture. No worrisome bone lesions. OTHER: No other significant finding. IMPRESSION: Constipation. No evidence of mechanical obstruction. TECHNICAL DOCUMENTATION: JOB ID: [id number] 2010 [employer]- All Rights Reserved Reading location - IP/workstation name: [email or web address]
[2020-01-14] MEDS: FAMOTIDINE INJ/PF 20 MG/2 ML SDV IV SCH ×2 (11:52→23:22)
[2020-01-14] MEDS: NORMAL SALINE 1000 ML 1,000 ML IV PRN ×2 (12:03→23:25)
--- NOTE | 2020-01-14 12:58 | PDOC PROGRESS REPORT ---
Subjective Progress Note for:: 01/14/20 Subjective:: stll with intermitent abd pain, crampy passed small amts of flatus, no stool Reason For Visit: SMALL BOWEL OBSTRUCTION Physical Exam Vital Signs: Temp Pulse Resp BP Pulse Ox 98.7 F 68 18 133/70 H 97 01/14/20 11:19 01/14/20 11:19 01/14/20 11:19 01/14/20 11:19 01/14/20 11:19 Intake & Output 01/13/20 01/14/20 01/15/20 06:59 06:59 06:59 Intake Total 3942 1000 Output Total 3600 800 Balance 342 -800 1000 Weight 100.7 kg General appearance: PRESENT: mild distress Head exam: PRESENT: normocephalic Eye exam: PRESENT: EOMI Ear exam: PRESENT: normal external ear exam Mouth exam: PRESENT: moist Neck exam: PRESENT: full ROM Respiratory exam: PRESENT: clear to auscultation jose Cardiovascular exam: PRESENT: RRR Pulses: PRESENT: normal radial pulses, normal femoral pulses Vascular exam: PRESENT: normal capillary refill GI/Abdominal exam: PRESENT: diminished bowel sounds, distended Rectal exam: PRESENT: deferred Extremities exam: PRESENT: full ROM Musculoskeletal exam: PRESENT: full ROM Neurological exam: PRESENT: alert, awake, oriented to person, oriented to place Psychiatric exam: PRESENT: appropriate affect Skin exam: PRESENT: dry Results Laboratory Results: 01/14/20 07:34 01/14/20 07:34 01/14/20 01/14/20 07:34 07:34 WBC 5.8 RBC 4.02 Hgb 12.4 Hct 36.3 MCV 90 MCH 30.8 MCHC 34.0 RDW 13.6 Plt Count 276 Seg Neutrophils % 54.6 Sodium 137.2 Potassium 3.4 L Chloride 103 Carbon Dioxide 30 Anion Gap 5 BUN 9 Creatinine 0.54 Est GFR ( Amer) > 60 Glucose 123 H Calcium 9.1 Impressions: KUB X-Ray 01/11/20 00:00 IMPRESSION: Enteric drainage tube tip curls within the gastric fundus/cardia. copyright 2011 [employer]- All Rights Reserved Abdomen/Pelvis CT 01/11/20 14:17 IMPRESSION: 1. The constellation of findings as above suggest an incomplete small bowel obstruction. The transition zone is suggested in the mid abdomen. The etiology of these finding is not identified. 2. NO SIGNIFICANT OR ACUTE FINDING IN THE ABDOMEN OR PELVIS ON CT SCAN WITH IV CONTRAST. Abdomen X-Ray 01/14/20 06:30 IMPRESSION: Constipation. No evidence of mechanical obstruction. Assessment & Plan - Time Time Spent: 50 to 70 Minutes Critical Time spent with patient: 25-34 minutes Medications reviewed and adjusted accordingly: No Anticipated Discharge Disposition: Home, Self Care Anticipated Discharge Timeframe: within 72 hours - Plan Summary Plan Summary: sbo plan on small bowel series today.
--- NOTE | 2020-01-14 15:14 | RADIOLOGY REPORT (SQ) ---
EXAM DESCRIPTION: SMALL BOWEL SERIES IMAGES COMPLETED DATE/TIME: 01/14/2020 3:00 pm REASON FOR STUDY: sbo COMPARISON: None. FLUOROSCOPY TIME: None. 4 images saved to PACS. LIMITATIONS: None. PROCEDURE: Initial vp design image of abdomen acquired, followed by administration of oral contrast. Se rial radiographic images acquired. Fluoroscopic images recorded of the terminal ileum and other cheryl cated areas. All images stored on PACS. FINDINGS: HISTOLOGY TECHNICIAN KUB: Non-obstructive bowel pattern. No abnormal calcifications. Soft tissue planes normal. STOMACH: Normal distention. DUODENUM: Normal mucosal pattern with adequate distention. No displacement or obstruction. JEJUNUM: Normal mucosal pattern. No dilatation, segmentation, strictures or masses. ILEUM: Normal mucosal pattern. No dilatation, segmentation, strictures or masses. TERMINAL ILEUM AND ILEO-CECAL VALVE: Limited evaluation. No obstruction. No defects. PROXIMAL COLON: Incompletely imaged. No abnormality. OTHER: No other significant finding. IMPRESSION: Normal transit time. No evidence of bowel obstruction. COMMENT: Quality ID [id number]: Final reports for procedures using fluoroscopy that document radiation exp osure indices, or exposure time and number of fluorographic images (if radiation exposure indices are not available) TECHNICAL DOCUMENTATION: JOB ID: [id number] 2010 [email or web address]- All Rights Reserved Reading location - IP/workstation name: [email or web address]
[2020-01-15] MEDS: INSULIN LISPRO 100 UNIT/ML 3 ML VIAL SUBCUT SCH ×2 (08:48→12:34)
[2020-01-15] MEDS: KETOROLAC TROMETHAMINE INJ/PF 30 MG/1 ML SDV IV PRN (09:09)
[2020-01-15] MEDS: FAMOTIDINE INJ/PF 20 MG/2 ML SDV IV SCH (09:10)
--- NOTE | 2020-01-15 10:21 | PDOC PROGRESS REPORT ---
Subjective Progress Note for:: 01/15/20 Subjective:: Feels well. Tolerating diet well. Had bowel movements yesterday. Abdomen feels good. Patient states that she had a colonoscopy couple of years ago that was unremarkable. Reason For Visit: SMALL BOWEL OBSTRUCTION Physical Exam Vital Signs: Temp Pulse Resp BP Pulse Ox 98.2 F 66 16 143/76 H 99 01/15/20 08:52 01/15/20 08:52 01/15/20 08:52 01/15/20 08:52 01/15/20 08:52 Intake & Output 01/14/20 01/15/20 01/16/20 06:59 06:59 06:59 Intake Total 2960 Output Total 800 Balance -800 2960 Weight 100.7 kg 100.5 kg General appearance: PRESENT: no acute distress, cooperative Respiratory exam: PRESENT: clear to auscultation jose Cardiovascular exam: PRESENT: RRR GI/Abdominal exam: PRESENT: other - Soft, nondistended, nontender to palpation. Extremities exam: PRESENT: other - No swelling nor tenderness Results Laboratory Results: 01/14/20 07:34 01/14/20 07:34 Impressions: KUB X-Ray 01/11/20 00:00 IMPRESSION: Enteric drainage tube tip curls within the gastric fundus/cardia. copyright 2011 [employer]- All Rights Reserved Abdomen/Pelvis CT 01/11/20 14:17 IMPRESSION: 1. The constellation of findings as above suggest an incomplete small bowel obstruction. The transition zone is suggested in the mid abdomen. The etiology of these finding is not identified. 2. NO SIGNIFICANT OR ACUTE FINDING IN THE ABDOMEN OR PELVIS ON CT SCAN WITH IV CONTRAST. Small Bowel X-Ray 01/14/20 00:00 IMPRESSION: Normal transit time. No evidence of bowel obstruction. Abdomen X-Ray 01/14/20 06:30 IMPRESSION: Constipation. No evidence of mechanical obstruction. Assessment & Plan - Diagnosis (1) Partial small bowel obstruction Is this a current diagnosis for this admission?: Yes Plan: Resolved. Had a normal small bowel follow series yesterday. Tolerating a diet. Abdominal exam looks normal today. Will discharge patient home. Follow-up on a as needed basis. Patient to call for any problems. - Time Time Spent: 30 to 50 Minutes Critical Time spent with patient: Less than 15 minutes Anticipated Discharge Disposition: Home, Self Care Anticipated Discharge Timeframe: within 24 hours
--- NOTE | 2020-01-15 10:32 | PDOC DISCHARGE SUMMARY ---
General - Admit/Disc Date/PCP Admission Date/Primary Care Provider: 01/11/20 19:28 PASCUAL GIORDANO MD Discharge Date: 01/15/20 - Discharge Diagnosis Final Diagnosis: Partial small bowel obstruction. - Assessment Summary: Patient was initially treated with NG tube decompression. She appeared to have improvement and her NG tube was pulled and liquids were begun but she still had some symptoms therefore small bowel follow series was obtained which was entirely normal. She had subsequent bowel movements and was feeling back to normal with nondistended nontender abdomen. She was tolerating a diet well at the time of discharge. She is now been discharged home in good condition. She will follow-up on a as needed basis. She is encouraged to stay active at home, stay well-hydrated with water, and take fiber supplements. If she continues to have constipation problems she is to come in for follow-up for a colonoscopy. She had a colonoscopy 2 years ago and I do not think another one is indicated unless she has repeated episodes of constipation. Patient is to call immediately for any problems such as recurrent abdominal distention or nausea and vomiting. - Additional Information Resuscitation Status: Full Code Discharge Diet: Diabetic Discharge Activity: Activity As Tolerated - Stay active Referrals: PASCUAL GIORDANO MD [Primary Care Provider] - Follow up as needed Home Medications: Amlodipine Besylate [Norvasc 10 mg Tablet] 10 mg PO DAILY 03/31/17 Hydrochlorothiazide [Hydrodiuril 25 mg Tablet] 25 mg PO DAILY 03/31/17 Metformin HCl [Metformin HCl ER] 1,000 mg PO BID 03/31/17 Atorvastatin Calcium [Lipitor 10 mg Tablet] 10 mg PO DAILY 01/11/20 Citalopram Hydrobromide [Celexa 20 mg Tablet] 20 mg PO DAILY 01/11/20 Oxycodone HCl/Acetaminophen [Oxycodon-Acetaminophen 7.5-325] 1 each PO BIDP PRN 01/11/20 Tacrolimus 1 applic TP BIDP PRN 01/11/20 History of Present Illiness History of Present Illness: GRANT CAGE is a 54 year old female Physical Exam Vital Signs: Temp Pulse Resp BP Pulse Ox 98.2 F 66 16 143/76 H 99 01/15/20 08:52 01/15/20 08:52 01/15/20 08:52 01/15/20 08:52 01/15/20 08:52 Intake & Output 01/14/20 01/15/20 01/16/20 06:59 06:59 06:59 Intake Total 2960 Output Total 800 Balance -800 2960 Weight 100.7 kg 100.5 kg Results Laboratory Results: WBC 5.8 10^3/uL (4.0-10.5) 01/14/20 07:34 RBC 4.02 10^6/uL (3.72-5.28) 01/14/20 07:34 Hgb 12.4 g/dL (12.0-15.5) 01/14/20 07:34 Hct 36.3 % (36.0-47.0) 01/14/20 07:34 MCV 90 fl (80-97) 01/14/20 07:34 MCH 30.8 pg (27.0-33.4) 01/14/20 07:34 MCHC 34.0 g/dL (32.0-36.0) 01/14/20 07:34 RDW 13.6 % (11.5-14.0) 01/14/20 07:34 Plt Count 276 10^3/uL (150-450) 01/14/20 07:34 Lymph % (Auto) 32.2 % (13-45) 01/14/20 07:34 [place] % (Auto) 11.0 % (3-13) 01/14/20 07:34 Eos % (Auto) 1.6 % (0-6) 01/14/20 07:34 Baso % (Auto) 0.6 % (0-2) 01/14/20 07:34 Absolute Neuts (auto) 3.2 10^3/uL (1.7-8.2) 01/14/20 07:34 Absolute Lymphs (auto) 1.9 10^3/uL (0.5-4.7) 01/14/20 07:34 Absolute Monos (auto) 0.6 10^3/uL (0.1-1.4) 01/14/20 07:34 Absolute Eos (auto) 0.1 10^3/uL (0.0-0.6) 01/14/20 07:34 Absolute Basos (auto) 0.0 10^3/uL (0.0-0.2) 01/14/20 07:34 Seg Neutrophils % 54.6 % (42-78) 01/14/20 07:34 VBG pH 7.44 (7.30-7.42) H 01/11/20 15:32 VBG pCO2 51.2 mmHg (35-63) 01/11/20 15:32 VBG HCO3 33.6 mmol/L (20-32) H 01/11/20 15:32 VBG Base Excess 7.7 mmol/L 01/11/20 15:32 Sodium 137.2 mmol/L (137-145) 01/14/20 07:34 Potassium 3.4 mmol/L (3.6-5.0) L 01/14/20 07:34 Chloride 103 mmol/L (98-107) 01/14/20 07:34 Carbon Dioxide 30 mmol/L (22-30) 01/14/20 07:34 Anion Gap 5 (5-19) 01/14/20 07:34 BUN 9 mg/dL (7-20) 01/14/20 07:34 Creatinine 0.54 mg/dL (0.52-1.25) 01/14/20 07:34 Est GFR ( Amer) > 60 (>60) 01/14/20 07:34 Est GFR (MDRD) Non-Af > 60 (>60) 01/14/20 07:34 Glucose 123 mg/dL (75-110) H 01/14/20 07:34 POC Glucose 114 mg/dL (70-110) H 01/15/20 08:23 Lactic Acid 1.8 mmol/L (0.7-2.1) 01/11/20 15:32 Calcium 9.1 mg/dL (8.4-10.2) 01/14/20 07:34 Total Bilirubin 0.9 mg/dL (0.2-1.3) 01/11/20 15:32 Direct Bilirubin 0.1 mg/dL (0.0-0.4) 01/11/20 15:32 Neonat Total Bilirubin Not Reportable 01/11/20 15:32 Neonat Direct Bilirubin Not Reportable 01/11/20 15:32 Neonat Indirect Bili Not Reportable 01/11/20 15:32 AST 22 U/L (14-36) 01/11/20 15:32 ALT 10 U/L (<35) 01/11/20 15:32 Alkaline Phosphatase 89 U/L (38-126) 01/11/20 15:32 Total Protein 8.6 g/dL (6.3-8.2) H 01/11/20 15:32 Albumin 4.9 g/dL (3.5-5.0) 01/11/20 15:32 Urine Color YELLOW 01/11/20 16:36 Urine Appearance SLIGHTLY-CLOUDY 01/11/20 16:36 Urine pH 7.0 (5.0-9.0) 01/11/20 16:36 Ur Specific [place] 1.016 01/11/20 16:36 Urine Protein 30 mg/dL (NEGATIVE) H 01/11/20 16:36 Urine Glucose (UA) NEGATIVE mg/dL (NEGATIVE) 01/11/20 16:36 Urine Ketones TRACE mg/dL (NEGATIVE) H 01/11/20 16:36 Urine Blood NEGATIVE (NEGATIVE) 01/11/20 16:36 Urine Nitrite NEGATIVE (NEGATIVE) 01/11/20 16:36 Urine Bilirubin NEGATIVE (NEGATIVE) 01/11/20 16:36 Urine Urobilinogen NEGATIVE mg/dL (<2.0) 01/11/20 16:36 Ur Leukocyte Esterase NEGATIVE (NEGATIVE) 01/11/20 16:36 Urine WBC (Auto) 2 /HPF 01/11/20 16:36 Urine RBC (Auto) 8 /HPF 01/11/20 16:36 Urine Bacteria (Auto) TRACE /HPF 01/11/20 16:36 Squamous Epi Cells Auto <1 /HPF 01/11/20 16:36 Urine Mucus (Auto) RARE /LPF 01/11/20 16:36 Urine Ascorbic Acid NEGATIVE (NEGATIVE) 01/11/20 16:36 Impressions: KUB X-Ray 01/11/20 00:00 IMPRESSION: Enteric drainage tube tip curls within the gastric fundus/cardia. copyright 2011 [employer]- All Rights Reserved Abdomen/Pelvis CT 01/11/20 14:17 IMPRESSION: 1. The constellation of findings as above suggest an incomplete small bowel obstruction. The transition zone is suggested in the mid abdomen. The etiology of these finding is not identified. 2. NO SIGNIFICANT OR ACUTE FINDING IN THE ABDOMEN OR PELVIS ON CT SCAN WITH IV CONTRAST. Abdomen X-Ray 01/13/20 00:00 IMPRESSION: No evidence of bowel obstruction. Small Bowel X-Ray 01/14/20 00:00 IMPRESSION: Normal transit time. No evidence of bowel obstruction. Abdomen X-Ray 01/14/20 06:30 IMPRESSION: Constipation. No evidence of mechanical obstruction.
[2020-01-15 12:33] VITALS: BP 146/86
== END 2020-01-15 13:45 | disposition home or self-care (01) | DRG 390 ==
LOC: ER 12:49 → EH 19:28 → 2N 01-12 01:14
PROVIDERS: ADMIT Surgery; ATTEND Surgery
PROC: 0D9670Z Drainage of Stomach with Drainage Device, Via Natural or Artificial Opening (ICD-10-PCS; principal; 2020-01-11)
DX: K56.600 Partial intestinal obstruction, unspecified as to cause (principal); I10 Essential (primary) hypertension; J44.9 Chronic obstructive pulmonary disease, unspecified; E11.9 Type 2 diabetes mellitus without complications; K59.00 Constipation, unspecified; M19.90 Unspecified osteoarthritis, unspecified site; Z90.710 Acquired absence of both cervix and uterus; Z79.899 Other long term (current) drug therapy; Z79.84 Long term (current) use of oral hypoglycemic drugs
CPT/HCPCS: 36415; 74018; 74019; 74177; 74250; 80048; 80053; 81001; 82803; 82962; 83605; 85025; 94799; 99285; J1815; J1885; J2270; J2405; J3480; J7030; S0028; S0119

== ENCOUNTER → 2020-05-31 | Outpatient (CLI) | payer MEDICARE, MEDICAID ==
--- NOTE | 2020-05-31 14:52 | WOMENS IMAGING REPORT ---
EXAM DESCRIPTION: 3D SCREENING MAMMO BILAT IMAGES COMPLETED DATE/TIME: 05/31/2020 11:19 am REASON FOR STUDY: Z12.31 ENCNTR SCREEN MAMMOGRAM FOR MALIGNANT NEOPLASM OF BREAST Z12.31 ENCNTR SCR EEN MAMMOGRAM FOR MALIGNANT NEOPLASM OF ZEUS COMPARISON: 05/04/2019, 04/24/2018, 04/23/2017 EXAM PARAMETERS: Views: Standard craniocaudal and mediolateral oblique views of each breast recorded using digital acquisition and breast tomosynthesis. Read with the assistance of CAD. .[facility] - Shoulder Tap [employer] Monitoring Technician Version 9.2 LIMITATIONS: None. FINDINGS: No suspicious masses, suspicious calcifications or architectural distortion. No areas of c oncern. IMPRESSION: NEGATIVE MAMMOGRAM. BIRADS 1. BREAST DENSITY: b. There are scattered areas of fibroglandular density. BIRAD: ASSESSMENT: 1 NEGATIVE RECOMMENDATION: ROUTINE SCREENING COMMENT: The patient has been notified of the results by letter per MQSA requirements. Additional no tification policies are in place for contacting patient with suspicious or incomplete findings. Quality ID #[id number]: The [employer] recommends an annual screening mammogram for women aged 40 years or over. This facility utilizes a reminder system to ensure that all patients receive reminder letters, and/or direct phone calls for appointments. This includes reminders for routine scr eening mammograms, diagnostic mammograms, or other Breast Imaging Interventions when appropriate. Th is patient will be placed in the appropriate reminder system. TECHNICAL DOCUMENTATION: FINDING NUMBER: (1) ASSESSMENT: (1) JOB ID: [id number] 2010 [employer]- All Rights Reserved Reading location - IP/workstation name: [email or web address]
== END ==
LOC: WI 10:58
PROVIDERS: ATTEND Specialist
DX: Z12.31 Encounter for screening mammogram for malignant neoplasm of breast (principal)
CPT/HCPCS: 77063; 77067